=== PATIENT | female | born 1965 | race Caucasian/White ===

== ENCOUNTER 2019-06-10 15:03 | Inpatient (IN) ==
[2019-06-10] MEDS ORDERED: DUONEB (A & A) INH ONE (15:39)
--- NOTE | 2019-06-10 15:47 | PROVIDER DOCUMENTATION ---
HPI-General Adult - General Stated Complaint: SOB Time Seen by Provider: 06/10/19 15:26 Source: patient, family, EMS Allergies/Adverse Reactions: Patient Allergies Allergy/AdvReac Type Severity Reaction Status Date / Time Sulfa (Sulfonamide Allergy ITCHING Verified 05/21/12 23:14 Antibiotics) Home Medications: Home Medication List Medication Instructions Recorded Confirmed Last Taken Type Albuterol Sulfate Inhaler 2 puff INH [id number] 05/21/12 05/21/12 Unknown History [Ventolin Hfa] Aspirin 325 mg PO DAILY 05/21/12 05/21/12 Unknown History Azithromycin [Zithromax Tri-Jerry] 500 mg PO DIRECTED #1 tablet 05/21/12 Unknown Rx Budesonide/Formoterol Inhaler 2 puff INH RTBID 05/21/12 05/21/12 Unknown History [Symbicort 80/4.5 Microgm Inhaler] Fluticasone 50 Mcg Nasal [place] 2 spray JEYSON DAILY 05/21/12 05/21/12 Unknown History [Flonase] Insulin Aspart [Novolog] 100 unit SQ DIRECTED 05/21/12 05/21/12 Unknown History Insulin Glargine [Lantus] 0 unit SUBQ DIRECTED 05/21/12 05/21/12 Unknown History LISINOpril [Prinivil] 20 mg PO DAILY 05/21/12 05/21/12 Unknown History Levothyroxine [Synthroid] 200 microgm PO DAILY 05/21/12 05/21/12 Unknown History Lorazepam [Ativan] 1 mg PO Q6H PRN PRN 05/21/12 05/21/12 Unknown History Meloxicam [Mobic] 7.5 mg PO DAILY 05/21/12 05/21/12 Unknown History Methylprednisolone [Medrol Dosepak] 4 mg PO DIRECTED #1 package 05/21/12 Unknown Rx - History of Present Illness -Gen Adult Nature of Presenting Problems: Patient with a h/o copd brought to the ER by EMS. Patient has been having sob for days now. Has been using borrowed albuterol nebulizer at home. Patient got worse today. Per EMS fire department placed her on oxygen as her 02 sat was in the 70s. EMS gave breathing treament x2 enroute to ED. Patient denies cough, chest pain, N/V or diaphoresis Review of Systems - Adult - REVIEW OF SYSTEMS - ADULT Constitutional: reports: no symptoms reported Eyes: reports: no symptoms reported Ears, Nose, Mouth & Throat: reports: no symptoms reported Cardiovascular: reports: no symptoms reported Respiratory: reports: see HPI Gastrointestinal: reports: no symptoms reported Genitourinary: reports: no symptoms reported Musculoskeletal: reports: no symptoms reported Integumentary: reports: no symptoms reported Neurological: reports: no symptoms reported Psychiatric: reports: no symptoms reported Endocrine: reports: no symptoms reported Hematologic/Lymphatic: reports: no symptoms reported Allergic/Immunologic: reports: no symptoms reported All Other Systems: Reviewed and Negative Past History - Adult - PAST MEDICAL HISTORY-ADULT Review of Records: reports: Nursing Assessment Review, Medications Reviewed, Social history reviewed & non-contributory. Cardiovascular: reports: CHF, HTN Respiratory: reports: COPD - FAMILY HISTORY Family History: reviewed, not pertinent - SOCIAL HISTORY Smoking: cigarettes Substance Use: none/never Alcohol Use Frequency: never Living Situation: family Physical Exam-General - PHYSICAL EXAM-ADULT Initial Vital Signs Reviewed: Yes - CONSTITUTIONAL General Appearance: appears well, lethargic (slightly. on 02 nC 6liter now decreased to 4 liter) - EYES Eyes: PERRL/EOMI - HEAD, EARS, NOSE, MOUTH & THROAT HENMT: normocephalic/atraumatic, moist mucous membranes - NECK Neck: non-tender, full range of motion - RESPIRATORY Respiratory: chest non-tender, crackles - CARDIOVASCULAR Cardiovascular: regular rate, rhythm - GASTROINTESTINAL (ABDOMEN) Abdominal Exam: non tender - MUSCULOSKELETAL Back Exam: no CVA tenderness Extremity: non-tender, pedal edema (mild bilateral leg edema.) - SKIN Integumentary: normal color - NEUROLOGIC Neurologic: physician general practice II-XII nml as tested - PSYCHIATRIC Psych/Mental Status: oriented x 3 Progress - PLAN OF CARE/RESULTS Progress/Plan/Lab Results: Orders Category Date Time Status Saline Loc NOW Care 06/10/19 15:39 Ordered CHEST-2 VIEWS [RAD] Stat Exams 06/10/19 15:39 Ordered CBC WITH DIFF [HEME] Stat Lab 06/10/19 15:39 Uncollected CK PROFILE [SP CHEM] Stat Lab 06/10/19 15:39 Uncollected COMPREHENSIVE METABOLIC PANEL [CHEM] Stat Lab 06/10/19 15:39 Uncollected PRO B-NATRIURETIC PEPTIDE Stat Lab 06/10/19 15:40 Uncollected TROPONIN T HIGH SENSITIVITY Stat Lab 06/10/19 15:39 Uncollected Albuterol 2.5MG/Ipratrop 0.5MG [Duoneb (A & A)] Med 06/10/19 15:39 Once 3 ml INH NOW ONE Aerosol Treatments Routine Oth 06/10/19 15:41 Ordered Aerosol Treatments Stat Oth 06/10/19 15:41 Ordered Pulse Oximetry Stat Oth 06/10/19 15:39 Ordered Result Diagrams: 06/10/19 16:50 06/10/19 16:50 - REASSESSMENT Reassessment #1 Time Reassessed: 17:45 Status: unchanged (patient is having bradycardia. Repeat EKG reveals sinus bradycardia. Pulse has been decreasing to the 30s. Discussed case with Child Daycare Worker Dr Spencer. He wants atropin to be tried and dopamin can be considered if Atropin is innefective. He wants revies of patients med. Patient unable to state and did not come with med. Family member indicates that patient speech is been differnet today and that she is having word finding difficulty. Patient had earlier stated that she had taken nyquill. Inview of abnormal speech pattern and bradycardia, I will do a CT head. Will also obtain an ABG.) Reassessment #2 Time Reassessed: 18:42 Status: other (Has a pco2 of 59, will place patient on bipap) - XRAY 1 XRAY Study: Chest ( CHEST-2 VIEWS - 06/10/2019 INDICATION: sob COMPARISON: 05/21/2012 FINDINGS: There is cardiomegaly and pulmonary vascular congestion. There is diffuse bilateral interstitial pulmonary edema. No pneumothorax or large pleural effusion. IMPRESSION: Congestive heart failure. Electronically signed by Robert Ness 06/10/2019 4:12 PM 06/10/192 Interpreting Physician: Robert Ness MD Dictated Date/Time: 06/10/19 1611) - CONSULTS/PCP/HOSPITALIST Notification #1 *Consult/PCP/Hospitalist*: Dr Fuchs Time Discussed: 19:14 Consult Disposition: Admit (Accepts admission but want D- dimer ordered) Departure - Departure Date of Disposition Decision: 06/10/19 Time of Disposition Decision: 19:12 DIAGNOSIS: COPD exacerbation CHF exacerbation Qualifiers: Heart failure type: unspecified Qualified Code(s): I50.9 - Heart failure, unspecified Disposition: ADMITTED INPATIENT 09 Certified Medical Emergency: Emergent Condition: Fair Referrals and Follow-Ups: None,PCP [Primary Care Provider] - - Critical Care Note This patient required my direct & personal management of CC.: No Attestation - Physician/ BUFFY Attestation Patient care was provided by Advanced Practice Provider:: No The physician spent face to face time with patient:: Yes Advanced Practice Provider documentation review:: Supervising physician onsite a nd consulted in the evaluation and care of this patient. The physician did have a face to face encounter with the patient.
--- NOTE | 2019-06-10 16:14 | Diag Imaging Result Doc PS360 ---
CHEST-2 VIEWS - 06/10/2019 INDICATION: sob COMPARISON: 05/21/2012 FINDINGS: There is cardiomegaly and pulmonary vascular congestion. There is diffuse bilateral interstitial pulmonary edema. No pneumothorax or large pleural effusion. IMPRESSION: Congestive heart failure. Electronically signed by Robert Ness 06/10/2019 4:12 PM
[2019-06-10] MEDS ORDERED: LASIX IV ONE (16:37)
--- NOTE | 2019-06-10 16:47 | EKG Report ---
Test Performed on : 06/10/2019 3:08:18 PM Test Reason : ED. No order in [place] Blood Pressure : / mmHG Vent. Rate : 056 BPM Atrial Rate : 056 BPM P-R Int : 000 ms QRS Dur : 104 ms QT Int : 516 ms P-R-T Axes : 000 -15 104 degrees QTc Int : 497 ms Junctional rhythm. Nonspecific T wave abnormality Abnormal ECG When compared with ECG of 21-MAY-2012 22:19, Junctional rhythm. has replaced Sinus rhythm. Vent. rate has decreased BY 48 BPM Nonspecific T wave abnormality, worse in Inferior leads T wave inversion now evident in Lateral leads Unconfirmed Result
[2019-06-10 17:04] LABS: BASO# 0.03 X1000 (0.0-0.2); BASO% 0.3 % (0.0-0.8); EOS% 0.9 % (0.0-10.0); HEMATOCRIT 37.1 % (37.0-47.0); HEMOGLOBIN 12.2 g/dL (12.0-16.0); IMM GRAN# 0.04 X1000 (0.0-0.04); IMM GRAN% 0.4 % (0.0-0.5); LYMPH# 2.48 X1000 (1.2-3.4); LYMPH% 22.9 % (20.5-51.1); MCH 32.8 PG (27-31); MCHC 32.9 g/dL (33-37); MCV 99.7 FL (81-99); MONO# 0.75 X1000 (0.11-0.59); MONO% 6.9 % (1.7-9.3); MPV 9.6 FL (7.4-10.4); NEUT# 7.45 X1000 (1.4-6.5); NEUT% 68.6 % (42.2-75.2); PLT 203 X1000 (130-400); RBC 3.72 XMIL (4.2-5.4); RDW 14.9 % (11.5-14.5); WBC 10.85 X1000 (4.8-10.8)
[2019-06-10] MEDS ORDERED: ATROPINE IV ONE ×2 (17:18→17:46)
[2019-06-10 17:24] LABS: AGAP 10; ALB/GLOB RATIO 1.1; ALBUMIN 3.9 g/dL (3.5-5.0); ALKALINE PHOSPHATASE 66 U/L (32-104); BUN 13 mg/dL (8-22); CHLORIDE 94 mmol/L (98-107); COSMO 271; CREATININE 0.9 mg/dL (0.5-0.9); ESTIMATED GFR > 60; GLUCOSE 119 mg/dL (70-104); GOT 48 U/L (10-30); GPT 34 U/L (10-36); POTASSIUM 3.8 mmol/L (3.5-5.1); SODIUM 135 mmol/L (136-145); TCO2 31 mmol/L (25-35); TOTAL BILIRUBIN 0.19 mg/dL (0.20-1.00); TOTAL PROTEIN 7.3 g/dL (6.3-8.3)
[2019-06-10 17:29] LABS: CK PROFILE 1053 U/L (24-173)
[2019-06-10 17:46] LABS: CK INDEX 1.6 (0.0-2.5); CK-MB 16.44 ng/mL (0.0-5.0)
[2019-06-10 18:35] LABS: URINE SOURCE CLEAN CATCH
[2019-06-10 18:38] LABS: ALLEN TEST YES; BE 5.4 mmoll (-3.0-3.0); BLOOD TYPE ARTERIAL; METHB 0.8 % (0.0-1.5); O2(CT) 16.5 mL/dL (15.0-23.0); O2HB 93.3 % (95.0-99.0); PO2(98.6) 79 mmHg (60-100); SAMPLE BLOOD; SAO2 96.9 % (95.0-100.0); THB 12.5 g/dL (11.5-17.4); pH(98.6) 7.35 (7.35-7.45)
[2019-06-10 18:41] LABS: MODALITY CANNULA; PCO2(98.6) 59 mmHg (35-45)
--- NOTE | 2019-06-10 18:43 | Diag Imaging Result Doc PS360 ---
CT HEAD W/O CONTRAST - 06/10/2019 INDICATION: word finding difficulty COMPARISON: None FINDINGS: The ventricles and sulci are normal in size and contour. No intracranial mass or hemorrhage. The skull is intact. The sinuses mastoids and middle ears are clear. There are advanced calcifications of the carotid siphons indicating vascular disease. IMPRESSION: No acute disease. This exam was performed using automated exposure control, adjustment of mA or kV according to patient size, and/or use of iterative reconstruction technique Electronically signed by Robert Ness 06/10/2019 6:41 PM
[2019-06-10 18:56] LABS: BILIRUBIN URINE NEGATIVE (NEGATIVE); BLOOD URINE NEGATIVE (NEGATIVE); COLOR YELLOW; GLUCOSE URINE NEGATIVE (NEGATIVE); KETONE URINE NEGATIVE (NEGATIVE); LEUKOCYTES URINE NEGATIVE (NEGATIVE); NITRITE URINE NEGATIVE (NEGATIVE); PH URINE 6.5; PROTEIN URINE 50 mg/dL (NEGATIVE); SP GRAVITY URINE 1.016; TURBIDITY URINE CLEAR (CLEAR); UR EPITHELIAL CELLS <10 /HPF (<10); URINE BACTERIA 1+ /HPF; URINE RBC <10 /HPF (<10); URINE WBC <10 /HPF (<10); UROBILINOGEN URINE NORMAL (NORMAL)
[2019-06-10] MEDS: DUONEB (A & A) INH SCH (23:55)
[2019-06-10] MEDS ORDERED: ZOFRAN IV PRN (23:55)
--- NOTE | 2019-06-11 00:03 | HISTORY AND PHYSICAL ---
PRIMARY CARE PHYSICIAN: None. CHIEF COMPLAINT: Shortness of breath for 1 week. HISTORY OF PRESENTING ILLNESS: A 54-year-old female with a history of COPD, hypertension, diabetes mellitus type 2, and hypothyroidism, who presented to emergency department 1-week history of worsening shortness of breath. The patient states that she was having difficulty breathing and her symptoms were worsening. The patient was evaluated in the emergency department. She was found to be in some respiratory distress. She was put on BiPAP and she had improvement. During initial evaluation she was also found to be bradycardic. Her case was discussed with Cardiology who recommended she be given atropine and it seems that her heart rate had increased to around 50s. The patient will require admission for further management. At the time of my examination, patient denied any headache, fever, chills, chest pain, hemoptysis, melena, but complained of shortness of breath. PAST MEDICAL HISTORY: Includes hypertension, diabetes mellitus type 2, hypothyroidism, COPD. PAST SURGICAL HISTORY: Hysterectomy, thyroidectomy. ALLERGIES: No known drug allergies. CURRENT MEDICATIONS: Albuterol inhaler 2 puffs 4 times a day, aspirin 325 mg p.o. daily, azithromycin 500 mg as directed, insulin NovoLog 100 units subcu as directed, levothyroxine 200 mcg p.o. daily, lisinopril 20 mg p.o. daily, lorazepam 1 mg p.o. q.6 hours, meloxicam 7.5 mg p.o. daily. SOCIAL HISTORY: 40+ pack year history of smoking. Denies any history of alcohol or illicit drug use. FAMILY HISTORY: Positive for coronary disease mother. REVIEW OF SYSTEMS: Fourteen point review of systems is as in HPI. Other systems negative. PHYSICAL EXAMINATION: GENERAL: The patient is currently on BiPAP. VITAL SIGNS: Temperature 98 degrees, pulse 60, respirations 22, blood pressure 153/94. HEENT: Atraumatic, normocephalic. Extraocular movements intact. PERRLA. NECK: No masses. CHEST: Rhonchi. CARDIOVASCULAR: Regular rate and rhythm. ABDOMEN: Soft. Positive bowel sounds. EXTREMITIES: Trace edema. NEUROLOGIC: She is awake, alert, oriented x3. : No bladder distention. SKIN: Warm. LABORATORIES AND STUDIES: WBCs 10.85, hemoglobin 12.2, hematocrit 37.1, platelets 203,000. Blood gases shows pH of 7.35, pCO2 59, PO2 79. Sodium 135, potassium 3.8, chloride 94, CO2 is 31, BUN is 13, creatinine 0.9, glucose 110. Chest x-ray, congestive heart failure pattern. ASSESSMENT: This is a 54-year-old female with a history of hypertension, diabetes mellitus type 2, hypothyroidism and chronic obstructive pulmonary disease, who presented to emergency department with 1-week history of progressive shortness of breath. She was evaluated in the emergency department. She was found to be in distress. She was put on BiPAP and she had improvement. She was also found to be bradycardic and she was given atropine and due to her presenting symptoms she will require admission for further management. 1. Chronic obstructive pulmonary disease exacerbation. 2. Probable congestive heart failure. 3. Bradycardia. 4. Diabetes mellitus type 2. PLAN: 1. We will admit patient to PVC. 2. Continue the patient on BiPAP. 3. Continue with DuoNebs, IV Solu-Medrol, IV antibiotics. 4. We will continue gentle diuresis with Lasix and check echocardiogram and consult Cardiology. 5. Continue monitor patient on telemetry. 6. We will monitor blood glucose and put patient on sliding scale insulin regimen. 7. Put patient on DVT prophylaxis with SCDs and Lovenox. 8. We will continue to follow and reassess, make further recommendation based on patient's clinical course. cc: Arnoldo Fuchs MD
[2019-06-11] MEDS: DUONEB (A & A) INH SCH ×7 (00:47→23:23)
[2019-06-11] MEDS: LASIX IV SCH ×3 (01:18→21:45)
[2019-06-11] MEDS: LEVAQUIN 500 MG/D5W 500 MG/100 ML IVPB IV SCH ×2 (01:18→23:05)
[2019-06-11] MEDS: SOLU-MEDROL IV SCH ×3 (01:18→16:57)
[2019-06-11] MEDS ORDERED: SYNTHROID PO SCH (07:00)
[2019-06-11] MEDS: HUMULIN R SUBQ SCH ×4 (07:00→21:45)
[2019-06-11 07:55] LABS: BASO# 0.01 X1000 (0.0-0.2); BASO% 0.1 % (0.0-0.8); EOS# 0.02 X1000 (0.0-0.7); EOS% 0.2 % (0.0-10.0); HEMOGLOBIN 12.4 g/dL (12.0-16.0); IMM GRAN# 0.03 X1000 (0.0-0.04); IMM GRAN% 0.3 % (0.0-0.5); LYMPH# 1.21 X1000 (1.2-3.4); LYMPH% 10.8 % (20.5-51.1); MCH 32.5 PG (27-31); MCHC 32.6 g/dL (33-37); MCV 99.7 FL (81-99); MONO# 0.34 X1000 (0.11-0.59); MPV 9.4 FL (7.4-10.4); NEUT# 9.63 X1000 (1.4-6.5); NEUT% 85.6 % (42.2-75.2); PLT 195 X1000 (130-400); RBC 3.81 XMIL (4.2-5.4); RDW 14.9 % (11.5-14.5); WBC 11.24 X1000 (4.8-10.8)
[2019-06-11 08:25] LABS: LYMPHS 6 % (21-51); MONO 4 % (1-9); SEGS 90 % (42-75)
[2019-06-11 08:34] LABS: AGAP 13; BUN 16 mg/dL (8-22); CALCIUM 7.9 mg/dL (8.8-10.2); CHLORIDE 91 mmol/L (98-107); COSMO 272; CREATININE 0.9 mg/dL (0.5-0.9); ESTIMATED GFR > 60; GLUCOSE 142 mg/dL (70-104); POTASSIUM 3.8 mmol/L (3.5-5.1); SODIUM 134 mmol/L (136-145); TCO2 30 mmol/L (25-35)
--- NOTE | 2019-06-11 09:12 | EKG Report ---
Test Performed on : 06/10/2019 4:43:55 PM Test Reason : BRADYCARDIA Blood Pressure : / mmHG Vent. Rate : 046 BPM Atrial Rate : 046 BPM P-R Int : 190 ms QRS Dur : 092 ms QT Int : 568 ms P-R-T Axes : 043 -01 105 degrees QTc Int : 497 ms Sinus bradycardia. Cannot rule out Anterior infarct , age undetermined Abnormal ECG When compared with ECG of 10-JUN-2019 15:08, (Unconfirmed) Sinus rhythm. has replaced Junctional rhythm. Nonspecific T wave abnormality no longer evident in Inferior leads Unconfirmed Result
--- NOTE | 2019-06-11 10:28 | EKG Report ---
Test Performed on : 06/11/2019 10:16:56 AM Test Reason : dyspnea Blood Pressure : / mmHG Vent. Rate : 059 BPM Atrial Rate : 059 BPM P-R Int : 172 ms QRS Dur : 086 ms QT Int : 524 ms P-R-T Axes : 040 -08 081 degrees QTc Int : 518 ms Sinus bradycardia. with sinus arrhythmia. Cannot rule out Anterior infarct (cited on or before 10-JUN-2019) Abnormal ECG When compared with ECG of 10-JUN-2019 16:43, (Unconfirmed) No significant change was found Confirmed by Lita Lee MD ([id number]) on 06/11/2019 1:06:30 PM
[2019-06-11] MEDS: LOVENOX SUBQ SCH (10:44)
[2019-06-11] MEDS: ASPIRIN PO SCH (10:44)
--- NOTE | 2019-06-11 11:51 | ED EKG INTERP ---
This chart was entered by Micheline Andersen Scribe, acting as scribe for Cam Das MD. EKG Interpretation - EKG Time of EKG reading by physician:: 10:34 EKG Read and Signed by:: Cam Das EKG Interpretation (*Must complete 3 of following elements*): Normal (borderline) Rate: 47 Rhythm: sinus bradycardia [place]: normal QRS: LVH NC Interval: normal ST Wave: normal Attestation - Physician/ BUFFY Attestation Patient care was provided by Advanced Practice Provider:: No The physician spent face to face time with patient:: Yes Advanced Practice Provider documentation review:: Supervising physician onsite and consulted in the evaluation and care of this patient. The physician did have a face to face encounter with the patient. This chart was documented by the indicated scribe, (Micheline Andersen Scribe) and accurately reflects the services I performed and decisions made by me, Cam Das MD, as attested by the provider's signature.
[2019-06-11 13:33] LABS: CHOLESTEROL 239 mg/dL (0-200); HDL 65 mg/dL (45-65); LDL 157 mg/dL; TRIGLYCERIDES 86 mg/dL (35-135); VLDL 17 mg/dL
[2019-06-11 13:35] LABS: HEMOGLOBIN A1C 8.1 % (4.8-6.0)
--- NOTE | 2019-06-11 16:18 | PROGRESS NOTE ---
DATE: 06/11/2019 SUBJECTIVE: The patient reports breathing much better in comparing with yesterday. Denies any fever or chills. No chest pressure or chest pain. OBJECTIVE: Vital Signs: Temperature 97.1 degrees, heart rate 66, respiratory rate 18, blood pressure 153/100, O2 saturation 95% 3 L nasal cannula. General: This is a chronically ill- looking, 54-year-old female lying in bed, in no acute distress. Cardiovascular: S1, S2 heard. No murmurs, gallops, or rubs. Regular rate and rhythm. Respiratory: Rhonchi noted over both pulmonary joe. The patient is not using any accessory muscles or having work of breathing. Abdomen: Soft. Nontender to palpation. Bowel sounds present. No organomegaly. Extremities: No clubbing or cyanosis. Mild edema in both lower extremities. Neurological: Patient is alert and oriented x3. Moves 4 extremities. LABORATORY DATA: White cell count 11.24, hemoglobin is 12.4, hematocrit 38.0, platelets 195,000. ESR 44. BMP reveals glucose of 248 calcium 7.9, sodium 134. ASSESSMENT AND PLAN: 1. Acute respiratory failure secondary to chronic obstructive pulmonary disease exacerbation. Patient is on DuoNeb q.4 h. As schedule plus IV steroids and IV antibiotics. We will continue with the same management. 2. Possible congestive heart failure. The patient's chest x-ray showed congestive heart failure and her labs showed proBNP elevated at 1000. Cardiology has been consulted. We will do echocardiogram. We will continue with Lasix 40 mg IV q.12 h. We will continue with the same management. 3. Bradycardia. Patient evaluated by Cardiology. At this point, her heart rate is in the range of 60s and 70s. We will continue to monitor. 4. Diabetes mellitus, type 2. We will check hemoglobin A1c. We will continue with sliding scale insulin. Accu-Chek before meals and also at bedtime. cc: Darren Mejia MD
--- NOTE | 2019-06-11 21:16 | CARDIOLOGY CONSULTATION ---
DATE: 06/11/2019 REQUESTING PHYSICIAN: Hospitalist Service. REASON FOR CONSULTATION: Shortness of breath, weakness. HISTORY: Ms. Carlson is a 54-year-old, female, who presented to the emergency room at about 3 p.m. yesterday, with increasing dyspnea and wheezing. She had not noted relief by using her beta-2 agonist inhaler albuterol. Upon presentation, they did a chest x-ray that shows congestive heart failure and electrocardiogram shows sinus bradycardia. There was a lot of artifact there. The rate was 56 beats per minute. Initial blood work showed a proBNP level of 1090 pcg/mL. The upper normal for her age is 192. Her BUN and creatinine were normal. Her blood gases showed a pCO2 of 59, pH of 7.35, PO2 of 79. The patient's electrolytes, except for sodium of 135, were otherwise normal. Of note, her TSH level was reported at 89.82 mIU/mL, which is about 20 times the normal value. Her LDL cholesterol 157, total cholesterol 239. The patient has been given oxygen and is feeling a little better. PAST HISTORY: Significant for hypothyroidism. She has hypertension, diabetes mellitus type 2, and COPD. SURGICAL HISTORY: She had previous complete thyroidectomy. She says that she had a total of 4 operations. She had a hysterectomy. SOCIAL HISTORY: She is single, unemployed, and lives with her daughter. She has been a heavy smoker for many years. Not a drinker. FAMILY HISTORY: Mother had coronary heart disease. ALLERGIES: Sulfa drugs. HOME MEDICATIONS: She really does not see any doctor on a regular basis. She has been taking the following medications as best as she can, including insulin, levothyroxine, lisinopril, meloxicam, aspirin. REVIEW OF SYSTEMS: She is really chronically short of breath. She is morbidly obese with a body mass index of 42.9. She has difficulty doing physical activities, gets short of breath with minimal effort. No chest pains. No previous, heart disease. No other positives. PHYSICAL EXAMINATION: Blood pressure 159/89, temperature 97.1 degrees, respirations 20, pulse is 56. She is awake, alert. She has the facial appearance of profound hypothyroidism.HEENT: No jugular venous distention. Chest: Diminished breath sounds bilaterally. Heart: Sounds are regular, rhythmic, slow, without gallop or rub. Abdomen: Nontender. Extremities: No obvious edema. Neurologic: Nonfocal. Moves 4 extremities. IMPRESSION: 1. Patient with increasing dyspnea with respiratory failure, hypercarbic. 2. Abnormal chest x-ray suggesting congestive heart failure. ProBNP level is elevated. 3. Severe profound hypothyroidism. 4. The patient may have an inflammatory process. 5. Medical noncompliance. 6. History of hypertension. 7. History of diabetes mellitus. RECOMMENDATIONS: At this time, we will treat her with gentle diuresis. Her thyroid disorder needs to be treated aggressively. We will review the echocardiogram that has been requested and we will determine whether or not further cardiac testing is required. At this time, I believe it will probably suffice to put her on a sound regimen of drugs to deal with her hypothyroidism and her diabetes mellitus, as well as hypertension and COPD, and she will probably be all right. She may need to resort to the social staff worker to help her filing for disability and to get her Medicaid coverage. The patient unfortunately has no source of income to be able to afford medications at this time. We will follow her as needed. cc: Oumar Ramirez MD
--- NOTE | 2019-06-11 22:15 | Extremity Venous Study ---
PROCEDURE NAME: Venous U/S Bilateral Legs - 06/11/2019 CARPET INSTALLER: Kira Tory RVT REQUESTING PROVIDER: EMELYN Burton INDICATION: Dyspnea, with a D-dimer of 1.04. FINDINGS: The deep and superficial veins of the bilateral lower extremities were visualized along their course. Vessels are compressible with forward flow and no evidence of intraluminal thrombus. SUMMARY: No deep or superficial venous thrombosis seen in the bilateral lower extremities. cc: MD Nela Thornton PA
--- NOTE | 2019-06-11 23:49 | ECHO REPORT ---
ORDER DATE: 06/11/2019 MEASUREMENTS: Septal thickness 1.3. Left ventricular internal diameter in diastole 5.4. Posterior wall thickness 1.3. Left ventricular internal diameter in systole 3.8. Aortic root 3.6. Left atrium 4.6. SUMMARY: 1. Technically difficult study due to limited acoustic window quality. Intravenous echo contrast agent Optison was utilized to enhance endocardial definition. 2. Aortic valve was without evidence of structural abnormality and appears to open adequately on 2-dimensional images. Peak gradient across the aortic valve is less than 10 mmHg. Mitral, tricuspid and pulmonic valves are without evidence of structural abnormality with trace mitral regurgitation. Aortic root is normal in size. 3. Normal left ventricular chamber size with mild concentric left ventricular hypertrophy is demonstrated. Estimated left ventricular ejection fraction appears to be at least 55%. No regional wall motion abnormality can be appreciated. Left atrium is mildly enlarged. Right atrium and right ventricle are normal in size with grossly preserved right ventricular systolic function. 4. Tiny posterior pericardial effusion. 5. Appearance of inferior vena cava suggests normal central venous pressure. CONCLUSIONS: 1. Technically difficult study. 2. No significant valvular abnormality evident. 3. Mild concentric left ventricular hypertrophy with estimated left ventricular ejection fraction at least 55%. 4. Mild left atrial enlargement. 5. Tiny posterior pericardial effusion. cc: MD Darren Azul MD
[2019-06-12] MEDS: LASIX IV SCH ×2 (00:14→12:20)
[2019-06-12] MEDS: DUONEB (A & A) INH SCH ×6 (03:45→22:31)
[2019-06-12 05:51] LABS: ALLEN TEST YES; BE 6.7 mmoll (-3.0-3.0); BLOOD TYPE ARTERIAL; METHB 0.6 % (0.0-1.5); O2(CT) 16.5 mL/dL (15.0-23.0); O2HB 91.5 % (95.0-99.0); PCO2(98.6) 50 mmHg (35-45); PO2(98.6) 60 mmHg (60-100); SAMPLE BLOOD; SAO2 93.6 % (95.0-100.0); THB 12.8 g/dL (11.5-17.4); pH(98.6) 7.42 (7.35-7.45)
[2019-06-12 05:56] LABS: MODALITY BI PAP
[2019-06-12] MEDS: SYNTHROID PO SCH ×3 (05:58→05:59)
--- NOTE | 2019-06-12 07:17 | PULMONOLOGY CONSULTATION ---
DATE: 06/11/2019 REQUESTING PROVIDER: Nela DUNAWAY. REASON FOR CONSULTATION: Dyspnea, COPD. HISTORY OF PRESENT ILLNESS: This is a 54-year-old female with a medical history of COPD with ongoing tobacco use, morbid obesity, obstructive sleep apnea, congestive heart failure, hypertension, diabetes mellitus type 2 and hypothyroidism. She presented to the ER yesterday afternoon with worsening shortness of breath for several days. Initial workup in the ER revealed COPD exacerbation, probable congestive heart failure and bradycardia. The patient currently is sitting at the edge of the bed with moderate respiratory distress noted. She just walked to the bathroom and she just came back from the bathroom. She reports severe shortness of breath with less than 3 states in the last couple of days. She also has abdominal tightness with tenderness at times. She reports no fever, chill, cough, wheezing, chest pain, palpitation, nausea, vomiting, bowel habit change, urination discomfort, pedal edema or orthopnea. She has normal appetite and she has no idea about her weight change. PAST MEDICAL HISTORY: 1. COPD with ongoing tobacco use on rescue inhaler only at home, used about twice a day recently. 2. Morbid obesity. Current BMI 42.93. 3. Obstructive sleep apnea, on CPAP therapy at home but did not use CPAP nightly. 4. Congestive heart failure. 5. Hypertension. 6. Diabetes mellitus type 2. 7. Hypothyroidism. PAST SURGICAL HISTORY: Hysterectomy, thyroidectomy. ALLERGIES: Sulfa. SOCIAL HISTORY: The patient smokes less than half a pack per day recently. She used to smoke up to 1 pack per day. She has no history of alcohol or illicit drug use. FAMILY HISTORY: Positive for coronary artery disease. REVIEW OF SYSTEMS: A 10-point review of systems was conducted and the pertinent is listed within the HPI, otherwise noncontributory. PHYSICAL EXAMINATION: Vital Signs: Temperature 98.2 degrees, blood pressure 157/97, pulse 70, respiratory rate 22, oxygen saturation 95% on nasal cannula at 3 L. General: Morbidly obese, sitting at the edge of the bed with moderate respiratory distress. HEENT: Atraumatic, normocephalic. Trachea midline. Mucosa pink and moist. Respiratory: Tachypneic. Increased work of breathing, but no accessory muscle use. Auscultation revealed mild expiratory wheezing bilaterally anteriorly but not posteriorly. Cardiovascular: Regular rate and rhythm with S1, S2 appreciated. Gastrointestinal: Soft, protuberant, some generalized tenderness. Normoactive bowel sounds in all 4 quadrants. Extremities: Bilateral lower extremities chest edema. No cyanosis. No clubbing. Dorsalis pedis 2+ bilaterally. Neurologic: Alert and oriented x3. Speech fluent. Follows commands. LAB DATA: White blood cell 11.24, hemoglobin 12.4, hematocrit 38.0, platelet 195,000. Sodium 134, potassium 3.8, chloride 91, carbon dioxide 30, BUN 16, creatinine 0.9, glucose 142. Hemoglobin A1c 8.1. IMAGING DATA: No imaging today. Chest x-ray yesterday revealed congestive heart failure with cardiomegaly, pulmonary vascular congestion and diffuse bilateral interstitial pulmonary edema. ASSESSMENT: This is a 54-year-old female with a medical history of COPD with ongoing tobacco use, morbid obesity, obstructive sleep apnea, congestive heart failure, hypertension, diabetes mellitus type 2, and hypothyroidism. She has been admitted to the medical floor with possible congestive heart failure, chronic obstructive pulmonary disease exacerbation, bradycardia, diabetes mellitus type 2 and hypothyroidism. 1. Acute hypoxic hypercapnic respiratory failure secondary to COPD exacerbation and pulmonary edema. 2. Possible congestive heart failure exacerbation with cardiomegaly, pulmonary vascular congestion, diffuse bilateral interstitial pulmonary edema and proBNP elevation. 3. Diabetes mellitus type 2. Hemoglobin A1c 8.14. 4. Hypothyroidism. TSH 89.82. 5. Morbid obesity with SANJAY. On home CPAP therapy, but not use nightly. 6. Ongoing tobacco use. PLAN: 1. Continue supplemental oxygen. BiPAP at bedtime and as needed. 2. Continue antibiotic Levaquin and diuresis. Continue bronchodilators. 3. Follow up with ABG, BMP. 4. Daily tobacco cessation education. 5. Weight loss recommended. 6. Further recommendations pending hospital course. Thank you for the courtesy of this consult. Dr. Cast did the examination, evaluation and management orders. HOWARD did the dictation only for Dr. Cast, according to his direction. Dictated by HOWARD Aviles for Anu Cast MD cc: HOWARD Aviles MD [facility]
[2019-06-12] MEDS: HUMULIN R SUBQ SCH ×4 (07:24→20:31)
--- NOTE | 2019-06-12 07:24 | Diag Imaging Result Doc PS360 ---
EXAM: CT THORAX W/O CONTRAST INDICATION: copd, chf TECHNIQUE: This exam was performed using automated exposure control, adjustment of mA or kV according to patient size, and/or use of iterative reconstruction technique. COMPARISON: None. FINDINGS: There is subsegmental platelike atelectasis at the lower lung zones bilaterally. Although less likely, superimposed infiltrate in the right middle lobe possible. There is no pleural fluid collection and no pneumothorax. There is cardiomegaly and there is trace pericardial fluid. There is coronary artery atherosclerotic calcification. There is no evidence of significant mediastinal or hilar lymphadenopathy. There is an incidental 1.7 cm coarsely calcified left thyroid lobe nodule. Limited views of the upper abdomen reveals cholelithiasis. There is bilateral low dense adrenal gland thickening suggesting hyperplasia or underlying adenomas most likely. Limited views of the upper abdomen are essentially unremarkable, otherwise. There is no evidence of acute osseous abnormality. IMPRESSION: 1.Subsegmental atelectasis at the lower lung zones bilaterally. Although less likely, superimposed infiltrate in the right middle lobe is possible. 2.Cardiomegaly and trace pericardial effusion. 3.Other incidental/nonacute findings detailed above. Electronically signed by Leonid Ghosh 06/12/2019 7:22 AM
--- NOTE | 2019-06-12 07:24 | Diag Imaging Result Doc PS360 ---
EXAM: CHEST-1 VIEW 06/12/2019 HISTORY: SOB TECHNIQUE: AP portable at 0555 COMMENT: There is cardiomegaly. There is some ill-defined opacity in the right base which was also present on 06/10/2019. Otherwise are has been no significant change considering differences in technique. IMPRESSION: Minimal atelectasis versus pneumonia right lower lobe. Cardiomegaly. Electronically signed by Lebron Aquino 06/12/2019 7:21 AM
[2019-06-12] MEDS: LOVENOX SUBQ SCH (08:02)
[2019-06-12] MEDS: ASPIRIN PO SCH (08:02)
--- NOTE | 2019-06-12 08:07 | EKG Report ---
Test Performed on : 06/12/2019 07:14:36 AM Test Reason : dyspnea Blood Pressure : / mmHG Vent. Rate : 056 BPM Atrial Rate : 056 BPM P-R Int : 184 ms QRS Dur : 086 ms QT Int : 512 ms P-R-T Axes : 056 009 066 degrees QTc Int : 494 ms Sinus bradycardia. with sinus arrhythmia. Nonspecific T wave abnormality Prolonged QT Abnormal ECG When compared with ECG of 11-JUN-2019 10:16, No significant change was found Confirmed by Lita Lee MD ([id number]) on 06/12/2019 8:32:46 AM
[2019-06-12 08:57] LABS: CALCIUM 7.9 mg/dL (8.8-10.2); MAGNESIUM 1.8 mg/dL (1.5-2.7); POTASSIUM 3.6 mmol/L (3.5-5.1)
--- NOTE | 2019-06-12 12:49 | PROGRESS NOTE ---
DATE: 06/12/2019 SUBJECTIVE: The patient reports feeling much better today. Denies any fever or chills. OBJECTIVE: Vital Signs: Temperature 98.2 degrees, heart rate 59, respiratory rate 16, blood pressure 175/88. O2 saturation 94% on 4 L. General: This is a chronically ill-looking, 54- year-old, disheveled female lying in bed, in no acute distress. Cardiovascular: S1, S2 heard. No murmurs, gallops, or rubs. Regular rate and rhythm. Respiratory: Rhonchi is noted all over both pulmonary joe. Basically, the same compared with yesterday. Patient is not using any accessory muscles or having work of breathing. Abdomen: Soft, nontender to palpation. Bowel sounds present. No organomegaly. Extremities: No clubbing or cyanosis but mild edema in both lower extremities. Neurological: Patient is alert and oriented x3. Moves 4 extremities. LABORATORY DATA: There are no labs from today yet. ABG shows pH 7.42 with pCO2 50, PO2 68. With creatinine 1.0. ASSESSMENT AND PLAN: 1. Acute respiratory failure secondary to chronic obstructive pulmonary disease exacerbation. Patient is on DuoNeb every 4 hours as scheduled and intravenous steroid and intravenous Levaquin. Clinically patient is doing better. We will continue with the same management. The CT of the chest that we had done yesterday showed right middle lobe pneumonia with subsegmental atelectasis and cardiomegaly and trace pleural effusion. At this point, we will continue with the same management. 2. Possible congestive heart failure. She continues to be on Lasix 40 mg IV q.12 hours. Echocardiogram is still pending. Cardiology will follow her as needed. 3. Bradycardia resolved. 4. Diabetes mellitus type 2. We will continue with sliding scale insulin. Accu-Chek before meals and also at bedtime. 5. Disposition. We will continue to monitor this patient closely. cc: Darren Mejia MD
--- NOTE | 2019-06-12 18:45 | PROVIDER PROGRESS NOTE ---
Progress Note Dr. Cast Progress Note/Pulmonary and or critical care Subjective: Patient is sitting in bed on NC 4L with no acute distress noted. She states she is feeling better. She used BiPAP over night with a good sleep. She still has SOB with about 3 steps of walking. Her abdominal tightness/soreness is resolved. She has occasional nonproductive cough. Objective: Vital Signs: T 98.2, MI 59, RR 16, BP 175/64 and SaO2 96% on NC 4L. Physical Examination: General: Morbidly obese. Sitting in bed with no acute distress noted. HEENT: Normocephalic. Atraumatic. Trachea midline. Mucosa pink and moist. Poor dentition. Chest: Even and unlabored. No increased work of breathing or accessory muscle use. Symmetrical excursion. Auscultation reveals bilateral rhonchi and diminished breathing sounds bibasilarly. CVS: Regular rate and rhythm with S1 and S2 appreciated. Abdomen: Soft. Nontender. Protuberant. Normoactive bowel sounds in all 4 quadrants. Extremities: No pedal edema. No cyanosis. No clubbing. Neuro: A/O x3. Speech fluent. Following commands. Labs and Radiology: Laboratory Results 06/11/19 06/12/19 06/12/19 19:45 05:40 07:32 Specimen Type ARTERIAL Sample Site R RADIAL pH 7.42 pCO2 50 H pO2 60 HCO3 30.0 H Base Excess 6.7 H Oxyhemoglobin 91.5 L ABG O2 Sat (Calculated) 16.5 ABG O2 Saturation 93.6 L ABG Carboxyhemoglobin 1.60 ABG Methemoglobin 0.6 Waldemar Test YES A-a O2 Difference 77.0 Total Hemoglobin 12.8 Lactate 2.10 Blood Gas Modality BI PAP FiO2 % 28.0 Inspiratory BiPAP 16.0 Expiratory BiPAP 5.0 Sodium 135 L Potassium 3.6 Chloride 92 L Carbon Dioxide 30 Anion Gap 13 BUN 19 Creatinine 1.0 H Estimated GFR/1.73 m2 58 BUN/Creatinine Ratio 19 Glucose 236 H D POC Glucose 231 H Calculated Osmolality 280 Calcium 7.9 L Magnesium 1.8 06/12/19 06/12/19 10:15 15:36 Specimen Type Sample Site pH pCO2 pO2 HCO3 Base Excess Oxyhemoglobin ABG O2 Sat (Calculated) ABG O2 Saturation ABG Carboxyhemoglobin ABG Methemoglobin Waldemar Test A-a O2 Difference Total Hemoglobin Lactate Blood Gas Modality FiO2 % Inspiratory BiPAP Expiratory BiPAP Sodium Potassium Chloride Carbon Dioxide Anion Gap BUN Creatinine Estimated GFR/1.73 m2 BUN/Creatinine Ratio Glucose POC Glucose 262 H 194 H Calculated Osmolality Calcium Magnesium Assessment: Acute respiratory failure, hypoxemic and hypercapnic. Possible RML pneumonia with atelectasis BLL. CT thorax w/o contrast on 06/12/19 revealed subsegmental atelectasis bilateral lower lung zones with possible superimposed infiltrate in the RML; cardiomegaly with trace pericardial effusion. Congestive heart failure with elevated proBNP. COPD with mild acute exacerbation. Ongoing tobacco use. Morbid obesity with SANJAY. Hypothyroidism. TSH 89.82 on 06/10/19. Uncontrolled diabetes mellitus type II. HA1c 8.1 on 06/11/19. Plan: Continue current treatment and supportive care per admitting and other teams on the case. Supplemental oxygen as needed. BiPAP qhs and as needed. Antibiotic (Levaquin). Diuretic. Bronchodilators. Daily smoking cessation education. Recommend weight loss. Continue DVT prophylaxis. Start incentive spirometer. Encourage deep breathing and coughing routinely. Stress the importance of CPAP therapy at home which will help the control of her blood pressure and diabetes. Patient states I did not use it every night before, but I will after I go back home.
[2019-06-13] MEDS: LASIX IV SCH ×3 (00:37→22:57)
[2019-06-13] MEDS: LEVAQUIN 500 MG/D5W 500 MG/100 ML IVPB IV SCH ×2 (00:37→22:57)
[2019-06-13] MEDS: DUONEB (A & A) INH SCH ×6 (03:15→23:43)
[2019-06-13 05:44] LABS: ALLEN TEST YES; BE 10.5 mmoll (-3.0-3.0); BLOOD TYPE ARTERIAL; HCO3-(ACT) 33.1 mmoll (20.0-26.0); METHB 0.7 % (0.0-1.5); O2(CT) 17.1 mL/dL (15.0-23.0); O2HB 95.7 % (95.0-99.0); PCO2(98.6) 49 mmHg (35-45); PO2(98.6) 79 mmHg (60-100); SAMPLE BLOOD; SAO2 97.3 % (95.0-100.0); THB 12.7 g/dL (11.5-17.4); pH(98.6) 7.47 (7.35-7.45)
[2019-06-13 05:49] LABS: MODALITY CANNULA
[2019-06-13] MEDS: HUMULIN R SUBQ SCH ×4 (06:01→23:01)
[2019-06-13] MEDS: SYNTHROID PO SCH ×2 (06:01→07:37)
--- NOTE | 2019-06-13 06:27 | Diag Imaging Result Doc PS360 ---
CHEST-1 VIEW - 06/13/2019 INDICATION: SOB COMPARISON: 06/12/2019 FINDINGS: Stable cardiomegaly and pulmonary vascular congestion. Stable tiny focal infiltrate at the right lung base. No diffuse edema. No large pleural effusion. IMPRESSION: No change from prior. Electronically signed by Robert Ness 06/13/2019 6:24 AM
[2019-06-13 08:29] LABS: AGAP 11; ALBUMIN 3.9 g/dL (3.5-5.0); BUN 20 mg/dL (8-22); CALCIUM 7.7 mg/dL (8.8-10.2); CHLORIDE 94 mmol/L (98-107); COSMO 282; CREATININE 0.9 mg/dL (0.5-0.9); ESTIMATED GFR > 60; GLUCOSE 204 mg/dL (70-104); MAGNESIUM 1.8 mg/dL (1.5-2.7); PHOSPHORUS 1.8 mg/dL (2.7-4.5); POTASSIUM 3.3 mmol/L (3.5-5.1); SODIUM 137 mmol/L (136-145); TCO2 32 mmol/L (25-35)
[2019-06-13] MEDS: LOVENOX SUBQ SCH (09:09)
[2019-06-13] MEDS: ASPIRIN PO SCH (09:09)
--- NOTE | 2019-06-13 10:20 | PROVIDER PROGRESS NOTE ---
Progress Note Pulmonary: Will see prn. Pls reconsult if needed.
[2019-06-13] MEDS ORDERED: SODIUM PHOSPHATE 35 MMOL in NS 250 ML IV ONE (11:00)
[2019-06-13] MEDS ORDERED: KLOR-CON PO ONE (11:38)
--- NOTE | 2019-06-13 13:14 | PROVIDER PROGRESS NOTE ---
Progress Note We are signing off of the patient's case. Please re-consult if needed.
--- NOTE | 2019-06-13 15:02 | PROGRESS NOTE ---
DATE: 06/13/2019 SUBJECTIVE: Patient reports feeling much better. Denies any fever or chills. OBJECTIVE: Vital Signs: Temperature 97.4 degrees, heart rate 67, respiratory rate 20, blood pressure 159/89, O2 saturation 95% on room air. General Examination: This is a chronically ill- looking, 54-year-old, disheveled, female lying in bed, in no acute distress. Cardiovascular Examination: S1 and S2 heard. No murmurs, gallops, or rubs. Regular rate and rhythm. Respiratory Examination: Rhonchi is noted all over both pulmonary joe. Definitely much better in comparing with admission. The patient is not using any accessory muscles or having work of breathing. Abdomen Soft, nontender to palpation. Bowel sounds present. No organomegaly. Extremities: No clubbing or cyanosis but mild edema in both lower extremities. Neurological Examination: The patient is alert and oriented x3. Moves 4 extremities. Laboratory Data: There is an ABG that shows pH 7.47, with pCO2 of 49, PO2 of 79. BMP that indicates potassium 3.3, glucose 204. ASSESSMENT AND PLAN: 1. Acute respiratory failure secondary to chronic obstructive pulmonary disease exacerbation. We will continue with DuoNeb every 4 hours as scheduled, intravenous steroids, and intravenous Levaquin. Clinically, this patient continues to improve. Requiring 2 L of oxygen by nasal cannula only. At this point, we will continue with the same management. 2. Possible congestive heart failure. Patient has been on Lasix. We did not see any signs of systolic heart failure because the ejection fraction has been 55% and I do not see signs of diastolic dysfunction. At this point, we will continue with the same management. 3. Bradycardia. That condition is completely resolved. 4. Diabetes mellitus type 2. We will continue with sliding scale insulin, and Accu-Chek before meals and also at bedtime. 5. Disposition. We will continue to monitor this patient closely. I think tomorrow she should be able to go home. cc: Darren Mejia MD
[2019-06-14] MEDS: DUONEB (A & A) INH SCH ×3 (03:48→11:11)
[2019-06-14] MEDS: HUMULIN R SUBQ SCH ×2 (06:12→11:15)
[2019-06-14] MEDS: SYNTHROID PO SCH (06:31)
[2019-06-14 07:40] LABS: ALLEN TEST YES; BLOOD TYPE ARTERIAL; HCO3-(ACT) 33.5 mmoll (20.0-26.0); PO2(98.6) 87 mmHg (60-100); SAMPLE BLOOD
[2019-06-14 07:44] LABS: PCO2(98.6) 62 mmHg (35-45)
[2019-06-14 07:45] LABS: MODALITY BI PAP
--- NOTE | 2019-06-14 07:59 | Diag Imaging Result Doc PS360 ---
EXAM: CHEST-1 VIEW INDICATION: SOB TECHNIQUE: One view COMPARISON: 06/13/2019 FINDINGS: Mild pulmonary venous congestion and tiny focal infiltrate at the right lung base is approximately stable. No new consolidation is identified. Cardiac silhouette is stable. IMPRESSION: Essentially stable chest. Electronically signed by Leonid Ghosh 06/14/2019 7:56 AM
[2019-06-14 08:54] LABS: AGAP 12; ALBUMIN 3.9 g/dL (3.5-5.0); BUN 13 mg/dL (8-22); CALCIUM 7.9 mg/dL (8.8-10.2); CHLORIDE 94 mmol/L (98-107); COSMO 287; CREATININE 0.8 mg/dL (0.5-0.9); ESTIMATED GFR > 60; GLUCOSE 163 mg/dL (70-104); MAGNESIUM 1.8 mg/dL (1.5-2.7); PHOSPHORUS 2.3 mg/dL (2.7-4.5); POTASSIUM 3.6 mmol/L (3.5-5.1); SODIUM 142 mmol/L (136-145); TCO2 36 mmol/L (25-35)
[2019-06-14 09:50] VITALS: BP 143/70
[2019-06-14] MEDS: ASPIRIN PO SCH ×2 (09:53→10:34)
[2019-06-14] MEDS ORDERED: SODIUM PHOSPHATE 35 MMOL in NS 250 ML IV ONE (09:53)
[2019-06-14] MEDS: LOVENOX SUBQ SCH (09:53)
[2019-06-14] MEDS: LASIX IV SCH (11:15)
--- NOTE | 2019-06-14 21:26 | DISCHARGE SUMMARY ---
ADMISSION DATE: 06/10/2019 DISCHARGE DATE: 06/14/2019 PRIMARY CARE PHYSICIAN: Listed as none. CONSULTATIONS: With pulmonology, cardiology. ADMISSION DIAGNOSES: 1. Chronic chronic obstructive pulmonary disease exacerbation. 2. Probable congestive heart failure. 3. Bradycardia. 4. Diabetes type 2. DISCHARGE DIAGNOSES: 1. Acute respiratory failure secondary to chronic obstructive pulmonary disease exacerbation improved. 2. Possible congestive heart failure with no signs of systolic or diastolic failure with an ejection fraction of 55%. 3. Bradycardia, resolved. 4. Diabetes type 2. SUMMARY OF FINDINGS: This is a 54-year-old female who presented to the emergency room with a 1-week history of shortness of breath, having difficulty breathing, was found to be in some respiratory distress, was put on BiPAP and had improvement. She was found to be bradycardic. She was given atropine. We consulted Cardiology, did an echocardiogram on 06/11/2019 that showed an ejection fraction of 55%. A bilateral lower extremity venous Doppler was obtained and noted no deep or superficial venous thrombosis in both bilateral lower extremities. Chest CT was obtained on 06/11/2019 after seen by pulmonology, subsegmental atelectasis at the lower lung zones bilaterally, although less likely a superimposed infiltrate in the right middle lobe was possible, she had cardiomegaly and trace pericardial effusion. She continued IV antibiotics, IV steroids that were weaned and tapered, DuoNeb q.4 hours, O2 by nasal cannula. She has improved. She was also given some IV diuretics. Her bradycardia completely resolved and is now felt that she can safely be discharged home. DISCHARGE MEDICATIONS: Will include DuoNeb q.4 hours p.r.n., aspirin 325 mg p.o. daily, Ventolin inhaler 2 puff inhalation 4 times a day, aspirin 325 mg p.o. daily, Flonase 2 sprays nasally daily, NovoLog 20 units subcu t.i.d., Lantus 35 units subcutaneous b.i.d., Levaquin 750 mg p.o. daily #7 with no refills, Synthroid 50 mcg p.o. daily and 200 mcg p.o. daily, lisinopril 20 mg p.o. daily. FOLLOWUP: She will need to follow up with Pulmonology and Cardiology and call their office to set up an appointment in the next 2 to 3 weeks. All discharge instructions were reviewed with the patient and she verbalized understanding. TIME SPENT: 35 minutes. Dictated by HOWARD Eubanks for Darren Mejia MD Addendum: Patient seen and examined by myself. Agree with HOWARD note. It reflects my assessment and plan. Patient is being discharged in stable condition. Will be seen by Cardiology and Pulmonology. She is to call office to schedule an appointment. cc: HOWARD Eubanks MD [facility]
== END 2019-06-14 15:38 | disposition home or self-care (01) | DRG 190 ==
LOC: ED 15:03 → EDIPHOLD 23:11 → SUATTDRO 23:11 → EDIPHOLD 06-11 12:46 → 3N 06-11 15:26 → EDIPHOLD 06-11 15:33 → 3N 06-11 18:27
PROVIDERS: ATTEND Internal Medicine

== ENCOUNTER 2019-07-11 20:18 | Inpatient (IN) ==
[2019-07-11] MEDS ORDERED: DUONEB (A & A) INH ONE (20:54)
--- NOTE | 2019-07-11 21:14 | Diag Imaging Result Doc PS360 ---
CHEST-1 VIEW - 07/11/2019 INDICATION: SOB COMPARISON: 06/14/2019 FINDINGS: There is significant cardiomegaly and pulmonary vascular congestion. There is some increasing hazy infiltrate or atelectasis in the right lung base. Lung volumes are lower. No pneumothorax or pleural effusion. IMPRESSION: Nonspecific findings. Electronically signed by Robert Ness 07/11/2019 9:12 PM
[2019-07-11 21:21] LABS: BASO# 0.03 X1000 (0.0-0.2); BASO% 0.3 % (0.0-0.8); EOS# 0.04 X1000 (0.0-0.7); EOS% 0.4 % (0.0-10.0); HEMATOCRIT 36.8 % (37.0-47.0); HEMOGLOBIN 11.5 g/dL (12.0-16.0); IMM GRAN# 0.04 X1000 (0.0-0.04); IMM GRAN% 0.4 % (0.0-0.5); LYMPH# 1.29 X1000 (1.2-3.4); LYMPH% 14.3 % (20.5-51.1); MCH 31.2 PG (27-31); MCHC 31.3 g/dL (33-37); MCV 99.7 FL (81-99); MONO# 0.99 X1000 (0.11-0.59); NEUT# 6.63 X1000 (1.4-6.5); NEUT% 73.6 % (42.2-75.2); PLT 281 X1000 (130-400); RBC 3.69 XMIL (4.2-5.4); WBC 9.02 X1000 (4.8-10.8)
[2019-07-11 21:32] LABS: INR 1.03; PROTIME 13.6 Seconds (11.0-16.0)
[2019-07-11 21:33] LABS: PTT 26.4 Seconds (22.3-41.8)
[2019-07-11 21:54] LABS: URINE SOURCE CLEAN CATCH
[2019-07-11 21:55] LABS: AGAP 11; ALB/GLOB RATIO 1.1; ALBUMIN 3.9 g/dL (3.5-5.0); ALKALINE PHOSPHATASE 96 U/L (32-104); BUN 11 mg/dL (8-22); CALCIUM 8.7 mg/dL (8.8-10.2); CHLORIDE 102 mmol/L (98-107); CK PROFILE 40 U/L (24-173); COSMO 281; CREATININE 0.7 mg/dL (0.5-0.9); ESTIMATED GFR > 60; GLUCOSE 147 mg/dL (70-104); GOT 28 U/L (10-30); GPT 36 U/L (10-36); POTASSIUM 4.6 mmol/L (3.5-5.1); SODIUM 140 mmol/L (136-145); TCO2 27 mmol/L (25-35); TOTAL BILIRUBIN 0.29 mg/dL (0.20-1.00); TOTAL PROTEIN 7.5 g/dL (6.3-8.3)
[2019-07-11 22:23] LABS: BILIRUBIN URINE NEGATIVE (NEGATIVE); BLOOD URINE NEGATIVE (NEGATIVE); COLOR YELLOW; GLUCOSE URINE NEGATIVE (NEGATIVE); KETONE URINE NEGATIVE (NEGATIVE); LEUKOCYTES URINE NEGATIVE (NEGATIVE); NITRITE URINE NEGATIVE (NEGATIVE); PROTEIN URINE 50 mg/dL (NEGATIVE); SP GRAVITY URINE 1.015; TURBIDITY URINE CLEAR (CLEAR); UR EPITHELIAL CELLS <10 /HPF (<10); URINE BACTERIA NEGATIVE /HPF; URINE RBC <10 /HPF (<10); URINE WBC <10 /HPF (<10); UROBILINOGEN URINE NORMAL (NORMAL)
[2019-07-11] MEDS ORDERED: LASIX IV ONE (22:57)
--- NOTE | 2019-07-11 23:04 | PROVIDER DOCUMENTATION ---
This chart was entered by Margaret Lopez Scribe, acting as scribe for Cam Das MD. HPI-Respiratory General - General Chief Complaint: Shortness of Breath Stated Complaint: SOB Time Seen by Provider: 07/11/19 20:39 Source: patient Allergies/Adverse Reactions: Patient Allergies Allergy/AdvReac Type Severity Reaction Status Date / Time Sulfa (Sulfonamide Allergy ITCHING Verified 07/11/19 21:00 Antibiotics) Home Medications: Home Medication List Medication Instructions Recorded Confirmed Last Taken Type Albuterol Sulfate Inhaler 2 puff INH [id number] 05/21/12 07/11/19 06/04/19 08:00 History [Ventolin Hfa] Insulin Aspart [Novolog] 20 unit SQ TID 05/21/12 07/11/19 06/10/19 08:00 History Insulin Glargine [Lantus] 35 unit SUBQ BID 05/21/12 07/11/19 06/10/19 20:00 History Albuterol 2.5MG/Ipratrop 0.5MG 3 ml INH Q4H PRN PRN #90 neb 06/14/19 07/11/19 Unknown Rx [Duoneb (A & A)] Aspirin 325 mg PO DAILY tab 06/14/19 07/11/19 Unknown Rx LISINOpril [Prinivil] 20 mg PO DAILY #90 tab 06/14/19 07/11/19 Unknown Rx Levothyroxine [Synthroid] 50 mcg PO DAILY #90 tab 06/14/19 07/11/19 Unknown Rx Levothyroxine [Synthroid] 200 microgm PO DAILY #90 tab 06/14/19 07/11/19 Unknown Rx - History of Present Illness-Resp Nature of Presenting Problem: pt is a 54 yr old female presenting with shortness of breath and productive cough onset this AM, pt reports clear sputum, no relief with albuterol neb tx. pt denies fever/chills, no chest pain, no other complaints Quality of Pain: reports: none Severity in ED: reports: moderate Onset/Duration: reports: this morning Timing: reports: getting worse Exposure: reports: unknown cause Cough Quality/Degree: reports: moderate, productive cough, sputum (clear) Episode Frequency: occasional episodes Current Respiratory Medication Therapy: Initiated albuterol (albuterol neb-no relief) Modifying Factors: improves with: albuterol nebulizer (no relief) Associated Symptoms: reports: cough, shortness of breath. denies: fever/chills Similar Symptoms Previously?: No Recently seen or treated by another doctor?: No Review of Systems - Adult - REVIEW OF SYSTEMS - ADULT Constitutional: denies: chills, fever Eyes: reports: no symptoms reported Ears, Nose, Mouth & Throat: reports: no symptoms reported Cardiovascular: denies: chest pain, palpitations, syncope Respiratory: reports: cough, dyspnea on exertion, shortness of breath Gastrointestinal: denies: abdominal pain, nausea, vomiting Genitourinary: denies: dysuria, frequency Musculoskeletal: denies: muscle aches Integumentary: reports: no symptoms reported Neurological: denies: dizziness/vertigo, headache/migraines Psychiatric: reports: no symptoms reported Endocrine: reports: no symptoms reported Hematologic/Lymphatic: reports: no symptoms reported Allergic/Immunologic: reports: no symptoms reported All Other Systems: Reviewed and Negative Past History - Adult - PAST MEDICAL HISTORY-ADULT Review of Records: reports: Nursing Assessment Review, Medications Reviewed, Social history reviewed & non-contributory. Major Childhood Illnesses: reports: denies history Cardiovascular: reports: CHF, HTN Respiratory: reports: COPD Gastrointestinal: reports: denies history Obstetrical/Gynecological: reports: denies history Genitourinary: reports: denies history Musculoskeletal: reports: denies history Neurological: reports: denies history Endocrine/Immune: reports: denies history Other Conditions: reports: denies history - IMMUNIZATION STATUS Childhood Immunizations: See Nurse Assessment Flu Vaccine: See Nurse Assessment - FAMILY HISTORY Family History: reviewed, not pertinent - SOCIAL HISTORY Smoking: quit greater than 1 year Substance Use: denies Living Situation: family Physical Exam-General - PHYSICAL EXAM-ADULT Initial Vital Signs Reviewed: Yes - CONSTITUTIONAL General Appearance: alert, moderate distress, obese - EYES Eyes: PERRL/EOMI - HEAD, EARS, NOSE, MOUTH & THROAT HENMT: normocephalic/atraumatic, moist mucous membranes - NECK Neck: non-tender, full range of motion, supple, normal inspection - RESPIRATORY Respiratory: chest non-tender, rhonchi, wheezing, other (left side worse than right) - CARDIOVASCULAR Cardiovascular: normal peripheral pulses, tachycardia - GASTROINTESTINAL (ABDOMEN) Abdominal Exam: normal bowel sounds, non tender, soft - LYMPHATIC Lymphatic: no adenopathy - MUSCULOSKELETAL Back Exam: normal inspection Extremity: normal range of motion, non-tender, normal inspection - SKIN Integumentary: normal color, normal turgor, warm/dry - NEUROLOGIC Neurologic: grossly normal - PSYCHIATRIC Psych/Mental Status: normal mood/affect - HEART Score HEART Score: History: Moderately Suspicious HEART Score: ECG: Non-Specific Repolarization Disturbance/LBBB/PM HEART Score: Age: 45-65 Years HEART Score: Risk Factors for Atherosclerotic Disease: > or = 3 Risk Factors or History of Atherosclerotic Disease HEART Score: Troponin: 1-3x Normal Limit Total HEART Score:: 6 Progress - PLAN OF CARE/RESULTS Progress/Plan/Lab Results: Vital Signs - 8 hr 07/11/19 20:20 07/11/19 22:05 Temperature 98.6 F Pulse Rate 116 H 115 H Respiratory Rate 22 23 Blood Pressure 175/103 O2 Sat by Pulse Oximetry 89 L 98 Laboratory Results - last 24 hr 07/11/19 07/11/19 07/11/19 20:45 20:54 20:54 WBC RBC Hgb Hct MCV MCH MCHC RDW Std Deviation Plt Count MPV Immature Gran % (Auto) Neut % (Auto) Lymph % (Auto) [place] % (Auto) Eos % (Auto) Baso % (Auto) Immature Gran # (Auto) Neut # (Auto) Lymph # (Auto) [place] # (Auto) Eos # (Auto) Baso # (Auto) PT INR PTT (Actin FS) Sodium 140 Potassium 4.6 Chloride 102 Carbon Dioxide 27 Anion Gap 11 BUN 11 Creatinine 0.7 Estimated GFR/1.73 m2 > 60 BUN/Creatinine Ratio 16 Glucose 147 H Calculated Osmolality 281 Calcium 8.7 L Total Bilirubin 0.29 AST 28 ALT 36 Alkaline Phosphatase 96 Creatine Kinase 40 Troponin T High Sens Ina-[id number]-Xpkjsgcjqvk Pept Total Protein 7.5 Albumin 3.9 Globulin 3.6 Albumin/Globulin Ratio 1.1 Plasma Lactate 0.7 Urine Source CLEAN CATCH Urine Color YELLOW Urine Turbidity CLEAR Urine pH 7.0 Ur Specific [place] 1.015 Urine Protein 50 A Ur Glucose (Stick) NEGATIVE Ur Ketones (Stick) NEGATIVE Urine Blood NEGATIVE Urine Nitrite NEGATIVE Urine Bilirubin NEGATIVE Urobilinogen Dipstick NORMAL Urine Leukocytes NEGATIVE Urine WBC (Auto) <10 Urine RBC (Auto) <10 U Epithel Cells (Auto) <10 Urine Bacteria (Auto) NEGATIVE 0307/11/19 07/11/19 20:54 20:54 20:54 WBC 9.02 RBC 3.69 L Hgb 11.5 L Hct 36.8 L MCV 99.7 H MCH 31.2 H MCHC 31.3 L RDW Std Deviation 14.0 Plt Count 281 MPV 10.0 Immature Gran % (Auto) 0.4 Neut % (Auto) 73.6 Lymph % (Auto) 14.3 L [place] % (Auto) 11.0 H Eos % (Auto) 0.4 Baso % (Auto) 0.3 Immature Gran # (Auto) 0.04 Neut # (Auto) 6.63 H Lymph # (Auto) 1.29 [place] # (Auto) 0.99 H Eos # (Auto) 0.04 Baso # (Auto) 0.03 PT 13.6 INR 1.03 PTT (Actin FS) 26.4 Sodium Potassium Chloride Carbon Dioxide Anion Gap BUN Creatinine Estimated GFR/1.73 m2 BUN/Creatinine Ratio Glucose Calculated Osmolality Calcium Total Bilirubin AST ALT Alkaline Phosphatase Creatine Kinase Troponin T High Sens 33 H Xzf-[id number]-Kaolkxlfbfe Pept Total Protein Albumin Globulin Albumin/Globulin Ratio Plasma Lactate Urine Source Urine Color Urine Turbidity Urine pH Ur Specific [place] Urine Protein Ur Glucose (Stick) Ur Ketones (Stick) Urine Blood Urine Nitrite Urine Bilirubin Urobilinogen Dipstick Urine Leukocytes Urine WBC (Auto) Urine RBC (Auto) U Epithel Cells (Auto) Urine Bacteria (Auto) 07/11/19 20:54 WBC RBC Hgb Hct MCV MCH MCHC RDW Std Deviation Plt Count MPV Immature Gran % (Auto) Neut % (Auto) Lymph % (Auto) [place] % (Auto) Eos % (Auto) Baso % (Auto) Immature Gran # (Auto) Neut # (Auto) Lymph # (Auto) [place] # (Auto) Eos # (Auto) Baso # (Auto) PT INR PTT (Actin FS) Sodium Potassium Chloride Carbon Dioxide Anion Gap BUN Creatinine Estimated GFR/1.73 m2 BUN/Creatinine Ratio Glucose Calculated Osmolality Calcium Total Bilirubin AST ALT Alkaline Phosphatase Creatine Kinase Troponin T High Sens Gic-[id number]-Mbqjvpjozsz Pept 8092 H Total Protein Albumin Globulin Albumin/Globulin Ratio Plasma Lactate Urine Source Urine Color Urine Turbidity Urine pH Ur Specific [place] Urine Protein Ur Glucose (Stick) Ur Ketones (Stick) Urine Blood Urine Nitrite Urine Bilirubin Urobilinogen Dipstick Urine Leukocytes Urine WBC (Auto) Urine RBC (Auto) U Epithel Cells (Auto) Urine Bacteria (Auto) Orders Category Date Time Status Cardiac Monitoring NOW Care 07/11/19 20:43 Active IV Insertion NOW Care 07/11/19 20:43 Completed NEWS Score >or=5:Order NEWS Bundle S.O. NOW Care 07/11/19 20:43 Active Notify Provider of NEWS Score NOW Care 07/11/19 20:43 Active CHEST-1 VIEW [RAD] Stat Exams 07/11/19 20:43 Completed ABG [RESP] Routine Lab 07/11/19 22:59 Ordered BLOOD CULTURE [BLDCUL] Stat Lab 07/11/19 20:43 Uncollected CBC WITH DIFF [HEME] Stat Lab 07/11/19 20:54 Completed CK PROFILE [SP CHEM] Stat Lab 07/11/19 20:54 Completed COMPREHENSIVE METABOLIC PANEL [CHEM] Stat Lab 07/11/19 20:54 Completed LACTATE, PLASMA [CHEM] Lab 07/11/19 20:54 Completed LACTATE, PLASMA [CHEM] Lab 07/11/19 23:45 Uncollected LACTATE, PLASMA [CHEM] Lab 07/12/19 02:45 Uncollected PRO B-NATRIURETIC PEPTIDE Stat Lab 07/11/19 20:54 Completed PROTIME WITH INR [COAG] Stat Lab 07/11/19 20:54 Completed PTT [COAG] Stat Lab 07/11/19 20:54 Completed TROPONIN T HIGH SENSITIVITY Stat Lab 07/11/19 20:54 Completed URINALYSIS W/POSS RFLX CULT [URINALYSIS] Stat Lab 07/11/19 20:45 Completed Albuterol 2.5MG/Ipratrop 0.5MG [Duoneb (A & A)] Med 07/11/19 20:54 Discontinued 3 ml INH NOW ONE Furosemide [Lasix] Med 07/11/19 22:57 Discontinued 40 mg IV NOW ONE Aerosol Treatments Routine Oth 07/11/19 20:54 Completed Aerosol Treatments Stat Oth 07/11/19 20:54 Completed O2 Per Protocol Stat Oth 07/11/19 20:43 Completed EKG [EKG] Stat Ther 07/11/19 20:25 Ordered Result Diagrams: 07/11/19 20:54 07/11/19 20:54 - EKG 1 Time of EKG reading by physician:: 20:34 EKG Read and Signed by:: Cam Das EKG Interpretation (*Must complete 3 of following elements*): Abnormal (possible left atrial enlargement possible anterior infarct-age undetermined) Rate: 103 Rhythm: sinus tach [place]: normal QRS: normal [place] Interval: normal ST Wave: normal - XRAY 1 XRAY Study: Chest Impression: Abnormal (Department of Imaging Patient: SUSAN RG Date: 07/11/19#: [id number] : 1965ADM Status: [facility]#: [id number] Age/Sex: 54/FRoom/Bed: Loc: ED Ordering Physician: Cam Das MD Family Physician: None,PCP Reason for Procedure: SOB Signed CHEST-1 VIEW - 07/11/2019 INDICATION: SOB COMPARISON: 06/14/2019 FINDINGS: There is significant cardiomegaly and pulmonary vascular congestion. There is some increasing hazy infiltrate or atelectasis in the right lung base. Lung volumes are lower. No pneumothorax or pleural effusion. IMPRESSION: Nonspecific findings. Electronically signed by Robert Ness 07/11/2019 9:12 PM 07/11/192111 Interpreting Physician: Robert Ness MD Dictated Date/Time: 07/11/192110 cc: Cam Das MD; None,PCP) - CONSULTS/PCP/HOSPITALIST Notification #1 *Consult/PCP/Hospitalist*: Dr Fuchs Time Discussed: 23:00 Reason/Comments: plan of care for pt admit Consult Disposition: Admit Departure - Departure Date of Disposition Decision: 07/11/19 Time of Disposition Decision: 23:02 DIAGNOSIS: CHF exacerbation, SOB (shortness of breath) Disposition: ADMITTED INPATIENT 09 Certified Medical Emergency: Emergent Condition: Fair Referrals and Follow-Ups: None,PCP [Primary Care Provider] - - Critical Care Note This patient required my direct & personal management of CC.: No Attestation - Physician/ BUFFY Attestation Patient care was provided by Advanced Practice Provider:: No The physician spent face to face time with patient:: Yes Advanced Practice Provider documentation review:: Supervising physician onsite and consulted in the evaluation and care of this patient. The physician did have a face to face encounter with the patient. This chart was documented by the indicated scribe, (Margaret Lopez, Juan) and accurately reflects the services I performed and decisions made by me, Cam Das MD, as attested by the provider's signature.
[2019-07-11 23:20] LABS: ALLEN TEST YES; BE 1.3 mmoll (-3.0-3.0); BLOOD TYPE ARTERIAL; HCO3-(ACT) 25.8 mmoll (20.0-26.0); METHB 0.8 % (0.0-1.5); O2(CT) 15.6 mL/dL (15.0-23.0); O2HB 92.8 % (95.0-99.0); PCO2(98.6) 44 mmHg (35-45); PO2(98.6) 73 mmHg (60-100); SAMPLE BLOOD; SAO2 95.5 % (95.0-100.0); THB 11.9 g/dL (11.5-17.4); pH(98.6) 7.39 (7.35-7.45)
[2019-07-11 23:21] LABS: MODALITY CANNULA
[2019-07-12] MEDS ORDERED: ZOFRAN IV PRN (01:44)
--- NOTE | 2019-07-12 05:05 | HISTORY AND PHYSICAL ---
PRIMARY CARE PROVIDER: None. CHIEF COMPLAINT: Shortness of breath and cough times several days. HISTORY OF PRESENTING ILLNESS: A 54-year-old obese female with a history of COPD, CHF, diabetes mellitus type 2, hypothyroidism, and hypertension, who had presented to emergency department with 3 to 4 days history of progressive shortness of breath. The patient states that she was coughing. She was having difficulty breathing and subsequently she had come to the emergency department. In the ED, she was evaluated and was noted that her ProBNP was elevated to around 8000. She was given IV diuresis in the ED and she had some improvement. Due to her presenting symptoms she will require admission for further management. At the time of my examination, patient denied any headache, fever, chills, chest pain, hemoptysis, but complained of shortness of breath. PAST MEDICAL HISTORY: Includes COPD, diabetes mellitus type 2, hypothyroidism, CHF, morbid obesity. PAST SURGICAL HISTORY: Hysterectomy. ALLERGIES: Sulfa. CURRENT MEDICATIONS: Albuterol inhaler q.4 hours, aspirin 325 mg p.o. daily, NovoLog 20 units subcu t.i.d., Lantus 35 units subcutaneous b.i.d., levothyroxine 50 mcg p.o. daily, lisinopril 20 mg p.o. daily. SOCIAL HISTORY: A 40+ pack-years history of smoking. Denies any history of alcohol or illicit drug use. FAMILY HISTORY: No history of coronary artery disease. REVIEW OF SYSTEMS: Fourteen point review of system is as in HPI. Other systems negative. PHYSICAL EXAMINATION: GENERAL: Cooperative, friendly female. She is resting more comfortably now. VITAL SIGNS: Temperature 98.6 degrees, pulse 116, respirations 22, blood pressure 175/103. She is saturating 89%. HEENT: Atraumatic normocephalic. Extraocular movements intact. PERRLA. NECK: No masses. CHEST: Bibasilar rales. CARDIOVASCULAR: Regular rate and rhythm. ABDOMEN: Soft, obese. Positive bowel sounds. EXTREMITIES: +1 edema. NEUROLOGIC: She is awake, alert, oriented x3. GENITOURINARY: No bladder distention. SKIN: Warm. LABORATORIES AND STUDIES: WBC 9.02, hemoglobin 11.5, hematocrit 36.8, platelets 281,000. Blood gas shows pH of 7.39, pCO2 of 44. Sodium 140, potassium 4.6, chloride 102, CO2 is 27, BUN 11, creatinine 0.7. Glucose is 147. ProBNP is 8092. Chest x-ray shows cardiomegaly and pulmonary vascular congestion. ASSESSMENT: A 54-year-old female with a history of morbid obesity, chronic obstructive pulmonary disease, diabetes mellitus type 2 and congestive heart failure, who had presented to emergency department with 3 to 4 days history of worsening shortness of breath. She was evaluated in the emergency department. She was found to be in heart failure and she will require admission for further management. ASSESSMENT: 1. Acute congestive heart failure exacerbation. 2. Chronic obstructive pulmonary disease. 3. Diabetes mellitus type 2. 4. Hypertension. PLAN: 1. We will admit patient to medical floor with telemetry. 2. Continue with gentle diuresis with Lasix. 3. We will continue with duo nebs. 4. We will monitor blood glucose. Put patient on sliding scale insulin regimen. 5. Monitor blood pressure. Resume antihypertensive agent. 6. Put patient on DVT prophylaxis with Lovenox. 7. We will continue to follow, reassess, make further recommendation based on patient's clinical course. cc: Arnoldo Fuchs MD
[2019-07-12] MEDS: DUONEB (A & A) INH SCH ×6 (05:27→23:19)
[2019-07-12] MEDS: HUMULIN R SUBQ SCH ×4 (06:22→21:00)
[2019-07-12] MEDS: LOVENOX SUBQ SCH (06:38)
[2019-07-12] MEDS: SYNTHROID PO SCH (06:38)
--- NOTE | 2019-07-12 06:45 | EKG Report ---
Test Performed on : 07/11/2019 8:34:52 PM Test Reason : SOB Blood Pressure : / mmHG Vent. Rate : 103 BPM Atrial Rate : 103 BPM P-R Int : 160 ms QRS Dur : 080 ms QT Int : 390 ms P-R-T Axes : 045 -18 041 degrees QTc Int : 510 ms Sinus tachycardia. Possible Left atrial enlargement Possible Anterior infarct , age undetermined Abnormal ECG When compared with ECG of 12-JUN-2019 07:14, Vent. rate has increased BY 47 BPM Non-specific change in ST segment in Inferior leads Nonspecific T wave abnormality now evident in Anterior leads Unconfirmed Result
[2019-07-12] MEDS: ASPIRIN PO SCH (08:56)
[2019-07-12] MEDS: PRINIVIL PO SCH (08:57)
[2019-07-12] MEDS: LASIX IV SCH ×2 (09:05→21:00)
[2019-07-13] MEDS: DUONEB (A & A) INH SCH ×6 (03:37→23:08)
[2019-07-13] MEDS: LOVENOX SUBQ SCH (06:42)
[2019-07-13] MEDS: HUMULIN R SUBQ SCH ×4 (06:42→21:10)
[2019-07-13] MEDS: SYNTHROID PO SCH ×2 (06:42)
[2019-07-13 07:50] LABS: BASO# 0.02 X1000 (0.0-0.2); BASO% 0.2 % (0.0-0.8); EOS# 0.01 X1000 (0.0-0.7); EOS% 0.1 % (0.0-10.0); HEMATOCRIT 35.3 % (37.0-47.0); HEMOGLOBIN 11.2 g/dL (12.0-16.0); IMM GRAN# 0.03 X1000 (0.0-0.04); IMM GRAN% 0.3 % (0.0-0.5); LYMPH# 1.24 X1000 (1.2-3.4); LYMPH% 14.2 % (20.5-51.1); MCH 31.6 PG (27-31); MCHC 31.7 g/dL (33-37); MCV 99.7 FL (81-99); MONO# 1.26 X1000 (0.11-0.59); MONO% 14.4 % (1.7-9.3); MPV 10.1 FL (7.4-10.4); NEUT% 70.8 % (42.2-75.2); PLT 250 X1000 (130-400); RBC 3.54 XMIL (4.2-5.4); WBC 8.76 X1000 (4.8-10.8)
[2019-07-13] MEDS: TUSSIONEX LIQUID PO SCH ×2 (08:05→21:14)
[2019-07-13 08:20] LABS: AGAP 13; BUN 11 mg/dL (8-22); CALCIUM 8.6 mg/dL (8.8-10.2); CHLORIDE 93 mmol/L (98-107); COSMO 274; CREATININE 0.6 mg/dL (0.5-0.9); ESTIMATED GFR > 60; GLUCOSE 152 mg/dL (70-104); POTASSIUM 3.6 mmol/L (3.5-5.1); SODIUM 136 mmol/L (136-145); TCO2 30 mmol/L (25-35)
[2019-07-13] MEDS: MUCOMYST 20% INH SCH ×2 (08:27→19:59)
--- NOTE | 2019-07-13 09:18 | PROGRESS NOTE ---
DATE: 07/13/2019 The patient reports still coughing. She requests actually something for coughing. The patient is still short of breath. OBJECTIVE: Vital Signs: Temperature 98.5 degrees, heart rate 99, respiratory rate 20, blood pressure 137/94, O2 saturation 92% on 2 L nasal cannula. General Examination: The is a 54-year- old female lying in bed, in no acute distress. Cardiovascular: S1, S2 heard. No murmurs, gallops, or rubs. Regular rate and rhythm. Respiratory: Bibasilar rhonchi is noted mostly in both bases. Patient not using any accessory muscles or having work of breathing. Abdomen: Soft, nontender to palpation. Bowel sounds present. No organomegaly. Extremities: No clubbing, cyanosis, 1+ pitting edema in both lower extremities. Neurological: Patient is alert and oriented x3. Moves all 4 extremities. LABORATORY DATA: Reviewed. ASSESSMENT AND PLAN: 1. Acute respiratory failure secondary to chronic obstructive pulmonary disease exacerbation. We will continue with DuoNeb every 4 hours as scheduled. We have added Mucomyst to her current treatment today. 2. Acute congestive heart failure. Patient has been placed on Lasix 40 mg IV q.12 hours. We will continue to monitor ins and outs strictly. 3. Diabetes mellitus type 2. We will continue to check Accu-Chek before meals and also at bedtime. 4. Hypertension. Blood pressure is under control. We will continue with the same management. cc: Darren Mejia MD
[2019-07-13] MEDS: ASPIRIN PO SCH (10:36)
[2019-07-13] MEDS: LASIX IV SCH ×2 (10:36→21:12)
[2019-07-13] MEDS: PRINIVIL PO SCH (10:36)
[2019-07-13] MEDS: AMBIEN PO SCH (21:11)
[2019-07-14] MEDS: DUONEB (A & A) INH SCH ×6 (03:38→23:17)
[2019-07-14] MEDS: LOVENOX SUBQ SCH (06:06)
[2019-07-14] MEDS: HUMULIN R SUBQ SCH ×4 (06:06→21:21)
[2019-07-14] MEDS: SYNTHROID PO SCH ×2 (06:08)
[2019-07-14] MEDS: MUCOMYST 20% INH SCH ×2 (07:44→19:45)
[2019-07-14] MEDS: ASPIRIN PO SCH (08:34)
[2019-07-14] MEDS: PRINIVIL PO SCH (08:34)
[2019-07-14] MEDS: LASIX IV SCH ×3 (08:35→21:21)
[2019-07-14] MEDS: TUSSIONEX LIQUID PO SCH ×2 (08:35→21:21)
[2019-07-14] MEDS ORDERED: VANCOMYCIN IV PER PHARMACY MISC SCH (10:45)
[2019-07-14 11:20] LABS: ALLEN TEST YES; BE 12.6 mmoll (-3.0-3.0); BLOOD TYPE ARTERIAL; HCO3-(ACT) 34.7 mmoll (20.0-26.0); O2(CT) 14.3 mL/dL (15.0-23.0); O2HB 94.7 % (95.0-99.0); PO2(98.6) 76 mmHg (60-100); SAMPLE BLOOD; SAO2 97.9 % (95.0-100.0); THB 10.7 g/dL (11.5-17.4); pH(98.6) 7.34 (7.35-7.45)
[2019-07-14 11:23] LABS: MODALITY CANNULA; PCO2(98.6) 76 mmHg (35-45)
--- NOTE | 2019-07-14 11:31 | PROGRESS NOTE ---
DATE: 07/14/2019 SUBJECTIVE: The patient reports coughing more. She is more short of breath, and her oxygen needs were up from 2 to 5 L of oxygen by nasal count, and is still struggling with breathing. OBJECTIVE: Vital Signs: Temperature 99.7 degrees, heart rate 110, respiratory rate 24, blood pressure 148/97, O2 saturation 95% on 5 L nasal cannula. General: This is a 54-year-old, female, lying in bed in mild respiratory distress, tachypneic. Cardiovascular: S1, S2 heard. No murmurs, gallops, or rubs. Regular rate and rhythm. Respiratory: Bibasilar rhonchi and wheezing noted in both pulmonary joe. The patient is not using accessory muscles or having work of breathing. Abdomen: Soft. Nontender to palpation. Bowel sounds present. No organomegaly. Extremities: No clubbing or cyanosis, but there is still 1+ pitting edema in both lower extremities. Neurological: The patient is alert and oriented x3. Moves all 4 extremities. LABORATORY DATA: Reviewed. ASSESSMENT AND PLAN: 1. Acute respiratory failure secondary to chronic obstructive pulmonary disease exacerbation. At this point, considering that this patient is not getting better, I am going to get a CT angiogram of the chest to see there is any pneumonia or pulmonary embolism going on. In the meantime, we will add strong antibiotics and breathing treatments as well. 2. Acute congestive heart failure. Will continue with Lasix 40 mg intravenously every 12 hours. 3. Diabetes mellitus type 2. Will continue with sliding scale insulin before meals and also at bedtime, and Accu-Cheks as well. 4. Hypertension. Blood pressure is under control. Will continue with the same medications. 5. Disposition. At this point, considering that this patient's clinical status is not improving, will move her to [facility] unit today. cc: Darren Mejia MD
[2019-07-14] MEDS: ZOSYN 3.375 GM in NS 50 ML IV SCH ×3 (11:47→21:21)
[2019-07-14] MEDS ORDERED: VANCOMYCIN 2 GM in NS 500 ML IV ONE (12:00)
[2019-07-14 12:14] LABS: BASO# 0.02 X1000 (0.0-0.2); BASO% 0.2 % (0.0-0.8); HEMATOCRIT 35.2 % (37.0-47.0); HEMOGLOBIN 10.9 g/dL (12.0-16.0); IMM GRAN# 0.03 X1000 (0.0-0.04); IMM GRAN% 0.3 % (0.0-0.5); LYMPH% 12.9 % (20.5-51.1); MCH 31.6 PG (27-31); MONO# 1.23 X1000 (0.11-0.59); MONO% 13.2 % (1.7-9.3); MPV 10.2 FL (7.4-10.4); NEUT# 6.85 X1000 (1.4-6.5); NEUT% 73.4 % (42.2-75.2); PLT 216 X1000 (130-400); RBC 3.45 XMIL (4.2-5.4); RDW 14.1 % (11.5-14.5); WBC 9.33 X1000 (4.8-10.8)
[2019-07-14 12:20] LABS: AGAP 9; BUN 15 mg/dL (8-22); CHLORIDE 90 mmol/L (98-107); COSMO 279; CREATININE 0.6 mg/dL (0.5-0.9); ESTIMATED GFR > 60; GLUCOSE 238 mg/dL (70-104); POTASSIUM 3.6 mmol/L (3.5-5.1); SODIUM 135 mmol/L (136-145); TCO2 36 mmol/L (25-35)
--- NOTE | 2019-07-14 13:15 | Diag Imaging Result Doc PS360 ---
EXAM: CT ANGIOGRM PULMONARY ARTERIES INDICATION: suspected PE TECHNIQUE: This exam was performed using automated exposure control, adjustment of mA or kV according to patient size, and/or use of iterative reconstruction technique. Thin section axial images and 3-D MIPS were obtained. COMPARISON: 06/11/2019 FINDINGS: There is no evidence of pulmonary embolism. There is mild aortic atherosclerotic calcification. There is no evidence of aortic aneurysm or dissection. There is stable cardiomegaly. There is trace pericardial fluid that has decreased since the previous study. No significant mediastinal or hilar lymphadenopathy is appreciated. There is stable scattered small shotty lymph nodes. There is subsegmental atelectasis at both lower lung zones. There has been development of vague tree-in-bud opacities throughout both lungs but predominantly on the right indicating bronchiolitis. There are mild patchy groundglass opacities bilaterally. There is interstitial thickening with a basilar predominance that probably represents a component of interstitial edema. There is mild bronchial mucosal thickening at the lower lung zones indicating bronchitis. Limited views of the upper abdomen reveals several calcified stones in the gallbladder lumen, stable. IMPRESSION: 1.Patchy groundglass opacities with vague tree-in-bud densities bilaterally but more prominent on the right indicating bronchiolitis with areas of pneumonia, likely infectious. 2.Bronchial mucosal thickening at the bases suggesting bronchitis. 3.The basilar interstitial thickening indicating a component of mild interstitial edema. 4.Bilateral subsegmental atelectasis at the lower lung zones. 5.No evidence of pulmonary embolism. Electronically signed by Leonid Ghosh 07/14/2019 1:12 PM
[2019-07-14] MEDS: AMBIEN PO SCH (21:21)
[2019-07-14] MEDS: VANCOMYCIN 1,600 MG in NS 250 ML IV SCH (22:54)
[2019-07-15] MEDS: DUONEB (A & A) INH SCH ×6 (03:25→23:13)
[2019-07-15] MEDS: ZOSYN 3.375 GM in NS 50 ML IV SCH ×4 (03:33→21:03)
[2019-07-15 05:13] LABS: ALLEN TEST YES; BE 14.4 mmoll (-3.0-3.0); BLOOD TYPE ARTERIAL; HCO3-(ACT) 36.1 mmoll (20.0-26.0); O2(CT) 15.4 mL/dL (15.0-23.0); O2HB 95.4 % (95.0-99.0); PO2(98.6) 91 mmHg (60-100); SAMPLE BLOOD; SAO2 97.4 % (95.0-100.0); THB 11.4 g/dL (11.5-17.4); pH(98.6) 7.42 (7.35-7.45)
[2019-07-15 05:22] LABS: PCO2(98.6) 64 mmHg (35-45)
[2019-07-15 05:23] LABS: MODALITY BI PAP
[2019-07-15] MEDS: SYNTHROID PO SCH ×2 (06:11→06:14)
[2019-07-15] MEDS: LOVENOX SUBQ SCH (06:11)
[2019-07-15] MEDS: HUMULIN R SUBQ SCH ×4 (06:44→21:03)
[2019-07-15 06:51] LABS: BASO# 0.02 X1000 (0.0-0.2); BASO% 0.3 % (0.0-0.8); EOS# 0.01 X1000 (0.0-0.7); EOS% 0.1 % (0.0-10.0); HEMATOCRIT 34.7 % (37.0-47.0); HEMOGLOBIN 10.5 g/dL (12.0-16.0); IMM GRAN# 0.02 X1000 (0.0-0.04); IMM GRAN% 0.3 % (0.0-0.5); LYMPH# 1.31 X1000 (1.2-3.4); LYMPH% 18.5 % (20.5-51.1); MCH 31.4 PG (27-31); MCHC 30.3 g/dL (33-37); MCV 103.9 FL (81-99); MONO# 1.47 X1000 (0.11-0.59); MONO% 20.7 % (1.7-9.3); MPV 9.9 FL (7.4-10.4); NEUT# 4.27 X1000 (1.4-6.5); NEUT% 60.1 % (42.2-75.2); PLT 210 X1000 (130-400); RBC 3.34 XMIL (4.2-5.4); RDW 14.2 % (11.5-14.5)
[2019-07-15 07:15] LABS: AGAP 11; BUN 19 mg/dL (8-22); CALCIUM 7.8 mg/dL (8.8-10.2); CHLORIDE 95 mmol/L (98-107); COSMO 290; CREATININE 0.7 mg/dL (0.5-0.9); ESTIMATED GFR > 60; GLUCOSE 218 mg/dL (70-104); POTASSIUM 3.5 mmol/L (3.5-5.1); SODIUM 141 mmol/L (136-145); TCO2 35 mmol/L (25-35)
[2019-07-15 08:01] LABS: LYMPHS 23 % (21-51); MONO 8 % (1-9); SEGS 69 % (42-75)
[2019-07-15] MEDS: MUCOMYST 20% INH SCH ×2 (08:14→19:31)
[2019-07-15] MEDS: ASPIRIN PO SCH (08:48)
[2019-07-15] MEDS: LASIX IV SCH ×2 (08:48→21:03)
[2019-07-15] MEDS: PRINIVIL PO SCH (08:48)
[2019-07-15] MEDS: TUSSIONEX LIQUID PO SCH ×2 (08:48→21:03)
[2019-07-15] MEDS: VANCOMYCIN 1,600 MG in NS 250 ML IV SCH (11:45)
--- NOTE | 2019-07-15 14:57 | PROGRESS NOTE ---
DATE: 07/15/2019 SUBJECTIVE: Patient reports she is breathing better. A little bit sleepy this morning upon my examination. No acute issues noted as per nursing staff overnight. OBJECTIVE: Vital Signs: Temperature 98.0 degrees, heart rate 92, respiratory rate 16, blood pressure 142/70, O2 saturation 100% on BiPAP. General Examination: This is a 54-year-old, female lying in bed, in no acute distress. Cardiovascular Examination: S1 and S2 heard. No murmurs, gallops, or rubs. Regular rate and rhythm. Respiratory Examination: Bibasilar rhonchi and wheezing noted in both pulmonary joe, basically unchanged in comparing with yesterday. Patient is not using any accessory muscles or having work of breathing. Abdomen: Soft, nontender to palpation. Bowel sounds present. No organomegaly. Extremities: No clubbing, cyanosis, or edema. Peripheral pulses present in both legs. Neurological Examination: The patient is alert and oriented x3. Moves 4 extremities. Laboratory Data: White cell count 7.1, hemoglobin 10.5, hematocrit 34.7, platelets 210,000. ABG shows pH 7.42, with pCO2 of 64, PO2 of 61. BMP shows blood sugar is 218 and calcium 7.8. A pulmonary arteriogram done yesterday showed patchy ground-glass opacities with big tree-in-bud densities bilaterally but more prominent on the right, indicating bronchiolitis with area of pneumonia, likely bronchial mucosal thickening at the base, suggesting bronchitis. The bibasilar interstitial thickening indicated a component of mild interstitial edema. No evidence of pulmonary embolism. ASSESSMENT AND PLAN: 1. Acute respiratory failure secondary to chronic obstructive pulmonary disease exacerbation. The patient was transferred to [facility] because she was short of breath and more confused. CT of the chest shows results as above. At this point, patient is feeling better, using a BiPAP mask. Her CO2 was elevated but now it is getting better. We will continue with the same antibiotic management and we will go from there. 2. Acute congestive heart failure. X-ray shows impairment, so we will continue with Lasix 40 mg intravenous every 12 hours. 3. Diabetes mellitus type 2. We will continue with sliding scale insulin, and Accu-Chek before meals and also at bedtime. 4. Hypertension. Blood pressure is under control. We will continue with the same medication. 5. Disposition. We will continue to monitor this patient here in the [facility]. cc: Darren Mejia MD [facility]
[2019-07-15] MEDS: AMBIEN PO SCH (21:03)
--- NOTE | 2019-07-16 00:07 | PULMONOLOGY CONSULTATION ---
DATE: 07/15/2019 REQUESTING CLINICIAN: Dr. Sprague. REASON FOR CONSULTATION: Respiratory failure with pneumonia. HISTORY OF PRESENT ILLNESS: Ms. Carlson is a 54-year-old white female with COPD, ongoing tobacco use and gastroesophageal reflux, who was discharged from this hospital on 06/14/2019 with a COPD exacerbation. The patient resumed smoking at the time of discharge. She reports she has never fully recovered from her prior illness. She continues to have cough with intermittent sputum production. She does eat a large meal around 6:30 and goes to bed around 8. She sometimes will eat after supper. She has previously undergone a cardiac catheterization due to reflux associated chest pain. She presented to the emergency room with increased cough with increased shortness of breath. CT pulmonary angiogram was performed, which revealed ground-glass changes and subsegmental atelectasis, which was new from prior scan a month ago. PAST MEDICAL HISTORY/PROBLEM LIST: 1. Chronic obstructive pulmonary disease with ongoing tobacco use. 2. Morbid obesity. 3. Gastroesophageal reflux. 4. Type 2 diabetes mellitus. 5. Hypothyroidism. 6. Hypertension. 7. Status post cholecystectomy. SOCIAL HISTORY: The patient continues to smoke. Denies alcohol use. FAMILY HISTORY: Noncontributory to current presentation. REVIEW OF SYSTEMS: As noted in the HPI. PHYSICAL EXAMINATION: General: Reveals an obese white female resting comfortably in no distress. Vital Signs: BP is 127/79, heart rate 92, respiratory rate 23, oxygen saturation 100%. HEENT: Pupils are equal and reactive. Oropharynx is clear. Neck: Supple. Chest: Reveals rhonchi bilaterally. Cardiac: S1, S2. Abdomen: Obese and soft. Extremities: Without edema. LABORATORY DATA: CT scan as per HPI. White blood count 7.10, hemoglobin 10.5, platelet count 210,000. Arterial blood gas reveals a pH of 7.42, pCO2 of 64, pO2 of 91. IMPRESSION: A 54-year-old with: 1. Mild bilateral pneumonia. 2. Gastroesophageal reflux with poor dietary hygiene. 3. Chronic obstructive pulmonary disease with ongoing tobacco use. 4. Morbid obesity. 5. Acute on chronic hypercapnic respiratory failure. 6. Acute on chronic hypoxemic respiratory failure. 7. Nicotine addiction with ongoing tobacco use. RECOMMENDATIONS: 1. Continue current antibiotic regimen as you are doing. 2. Continue bronchodilators. 3. Encourage the patient to discontinue all tobacco products. 4. Recommend strict reflux precautions. The patient was instructed to eat a small meal around 4:00 p.m. in the evening and not to eat after supper. 5. Long-term prognosis depends on her ability to follow reflux precautions, stop smoking, and lose weight. cc: Jef Sanchez MD
[2019-07-16] MEDS: VANCOMYCIN 1,600 MG in NS 250 ML IV SCH ×3 (00:33→23:29)
[2019-07-16] MEDS: ZOSYN 3.375 GM in NS 50 ML IV SCH ×4 (03:26→21:29)
[2019-07-16] MEDS: DUONEB (A & A) INH SCH ×6 (03:36→22:57)
[2019-07-16 05:54] LABS: BASO# 0.08 X1000 (0.0-0.2); BASO% 1.4 % (0.0-0.8); EOS# 0.04 X1000 (0.0-0.7); EOS% 0.7 % (0.0-10.0); HEMATOCRIT 34.7 % (37.0-47.0); HEMOGLOBIN 10.6 g/dL (12.0-16.0); LYMPH# 2.05 X1000 (1.2-3.4); MCH 31.5 PG (27-31); MCHC 30.5 g/dL (33-37); MCV 103.3 FL (81-99); MONO# 0.96 X1000 (0.11-0.59); MONO% 16.4 % (1.7-9.3); MPV 9.6 FL (7.4-10.4); NEUT# 2.73 X1000 (1.4-6.5); NEUT% 46.5 % (42.2-75.2); PLT 209 X1000 (130-400); RBC 3.36 XMIL (4.2-5.4); RDW 14.1 % (11.5-14.5); WBC 5.86 X1000 (4.8-10.8)
[2019-07-16] MEDS: LOVENOX SUBQ SCH (06:15)
[2019-07-16] MEDS: SYNTHROID PO SCH ×2 (06:15)
[2019-07-16 06:28] LABS: AGAP 11; BUN 16 mg/dL (8-22); CALCIUM 7.8 mg/dL (8.8-10.2); CHLORIDE 90 mmol/L (98-107); COSMO 282; CREATININE 0.7 mg/dL (0.5-0.9); ESTIMATED GFR > 60; GLUCOSE 120 mg/dL (70-104); POTASSIUM 3.4 mmol/L (3.5-5.1); SODIUM 140 mmol/L (136-145); TCO2 39 mmol/L (25-35)
[2019-07-16 06:41] LABS: ALLEN TEST YES; BE 17.6 mmoll (-3.0-3.0); BLOOD TYPE ARTERIAL; HCO3-(ACT) 38.6 mmoll (20.0-26.0); METHB 0.8 % (0.0-1.5); O2(CT) 14.2 mL/dL (15.0-23.0); O2HB 93.3 % (95.0-99.0); PO2(98.6) 66 mmHg (60-100); SAMPLE BLOOD; SAO2 95.3 % (95.0-100.0); THB 10.8 g/dL (11.5-17.4); pH(98.6) 7.46 (7.35-7.45)
[2019-07-16 06:43] LABS: MODALITY CANNULA
[2019-07-16 06:44] LABS: PCO2(98.6) 62 mmHg (35-45)
[2019-07-16] MEDS: HUMULIN R SUBQ SCH ×4 (06:50→21:35)
--- NOTE | 2019-07-16 07:28 | PROGRESS NOTE ---
DATE: 07/16/2019 SUBJECTIVE: Patient reports she is breathing better. Upon my examination, she definitely breathes better, less tachypneic, more awake and alert. No acute issues noted as per nursing staff overnight. OBJECTIVE: Vital Signs: Temperature 98.1 degrees, heart rate 68, respiratory rate 18, blood pressure 140/60, O2 saturation 97% on 3 L nasal cannula. General: Disease a 54-year-old female, lying in bed, in no acute distress. Cardiovascular: S1 and S2 heard. No murmurs, gallops, or rubs. Regular rate and rhythm. Respiratory: Bibasilar rhonchi and wheezing noted in both pulmonary joe, basically unchanged compared with the last 2 days. Patient is not using any accessory muscles or having work of breathing. Abdomen: Soft, nontender to palpation. Bowel sounds present. No organomegaly. Extremities: No clubbing, cyanosis, or edema. Peripheral pulses present in both legs. Neurological: Patient is alert and oriented x3. Moves 4 extremities. LABORATORY DATA: White cell count is 5.8, hemoglobin 10.6, hematocrit 34.7, platelets 209,000 with ABG that shows pH of 7.46 with pCO2 62, PO2 66 and BMP reveals potassium 3.4, glucose 120, calcium 7.8. ASSESSMENT AND PLAN: 1. Acute respiratory failure secondary to chronic obstructive pulmonary disease exacerbation and mild bilateral pneumonia. Patient is on vancomycin and Zosyn. Today is #2 for both medications. Clinically this patient is doing better. Her oxygen needs are getting down and the ABG still shows CO2 retention but getting better. I think at this point, we are going to continue with the same management. Pulmonary has been consulted. We will follow recommendations. 2. Congestive heart failure. We will continue with Lasix 40 mg IV q.12 hours. 3. Diabetes mellitus type 2. We will continue with sliding scale insulin and Accu-Chek before meals and also at bedtime. 4. Hypertension. Blood pressure is under control. We will continue with the same management. 5. Disposition. At this point, patient is getting much better. I think she will need to be more days here in the hospital but she is stable enough to be transferred to a regular floor today. cc: Darren Mejia MD
[2019-07-16] MEDS: MUCOMYST 20% INH SCH ×2 (08:07→19:34)
[2019-07-16] MEDS: ASPIRIN PO SCH (09:14)
[2019-07-16] MEDS: LASIX IV SCH ×2 (09:14→21:30)
[2019-07-16] MEDS: PRINIVIL PO SCH (09:14)
[2019-07-16] MEDS: TUSSIONEX LIQUID PO SCH ×2 (09:19→21:28)
[2019-07-16] MEDS: TYLENOL PO PRN (16:06)
--- NOTE | 2019-07-16 19:29 | PULMONOLOGY PROGRESS NOTE ---
DATE: 07/16/2019 SUBJECTIVE: The patient is awake, alert, and conversant. She is sitting on the side of the bed. She reports her shortness of breath continues to decrease. OBJECTIVE: Vital Signs: The patient has been afebrile for the last 24 hours. Vital signs are stable. Oxygen saturation is 95%. HEENT: Pupils are equal and reactive. Oropharynx appears clear. Neck: Supple. Chest: Chest reveals scattered wheezing bilaterally. Cardiac Exam: S1- S2. Abdomen: Obese and soft. Extremities: Reveal trace of peripheral edema. IMPRESSION: A 54-year-old with 1. Chronic obstructive pulmonary disease exacerbation. 2. Acute on chronic hypoxemic and hypercapnic respiratory failure. 3. Gastroesophageal reflux. 4. Nicotine addiction with ongoing tobacco use. 5. Morbid obesity. RECOMMENDATIONS: 1. Continue current treatment regimen. 2. Continue to encourage patient to stop smoking. 3. Daily education on the importance of reflux precautions. 4. Long-term, the patient would benefit from weight loss. In the short term, would recommend the patient maintain her weight while she attempts to stop smoking. cc: Jef Sanchez MD
[2019-07-16] MEDS: AMBIEN PO SCH (21:28)
[2019-07-17] MEDS: DUONEB (A & A) INH SCH ×6 (03:08→23:35)
[2019-07-17] MEDS: ZOSYN 3.375 GM in NS 50 ML IV SCH ×4 (03:13→21:18)
[2019-07-17 05:05] LABS: ALLEN TEST YES; BE 19.7 mmoll (-3.0-3.0); BLOOD TYPE ARTERIAL; HCO3-(ACT) 40.2 mmoll (20.0-26.0); METHB 0.3 % (0.0-1.5); O2(CT) 14.9 mL/dL (15.0-23.0); O2HB 92.6 % (95.0-99.0); PO2(98.6) 63 mmHg (60-100); SAMPLE BLOOD; SAO2 94.8 % (95.0-100.0); THB 11.4 g/dL (11.5-17.4); pH(98.6) 7.47 (7.35-7.45)
[2019-07-17 05:11] LABS: MODALITY CANNULA; PCO2(98.6) 64 mmHg (35-45)
[2019-07-17] MEDS: LOVENOX SUBQ SCH (06:04)
[2019-07-17] MEDS: SYNTHROID PO SCH ×2 (06:04)
[2019-07-17] MEDS: HUMULIN R SUBQ SCH ×4 (06:30→21:17)
[2019-07-17 06:46] LABS: BASO% 1.7 % (0.0-0.8); EOS# 0.06 X1000 (0.0-0.7); HEMOGLOBIN 10.6 g/dL (12.0-16.0); LYMPH# 1.92 X1000 (1.2-3.4); LYMPH% 33.5 % (20.5-51.1); MCH 30.9 PG (27-31); MCHC 30.3 g/dL (33-37); MONO# 0.84 X1000 (0.11-0.59); MONO% 14.7 % (1.7-9.3); NEUT# 2.81 X1000 (1.4-6.5); NEUT% 49.1 % (42.2-75.2); PLT 214 X1000 (130-400); RBC 3.43 XMIL (4.2-5.4); RDW 14.1 % (11.5-14.5); WBC 5.73 X1000 (4.8-10.8)
[2019-07-17 06:51] LABS: AGAP 11; BUN 13 mg/dL (8-22); CALCIUM 8.1 mg/dL (8.8-10.2); CHLORIDE 92 mmol/L (98-107); COSMO 287; CREATININE 0.7 mg/dL (0.5-0.9); ESTIMATED GFR > 60; GLUCOSE 127 mg/dL (70-104); POTASSIUM 3.1 mmol/L (3.5-5.1); SODIUM 143 mmol/L (136-145); TCO2 40 mmol/L (25-35)
[2019-07-17] MEDS ORDERED: KLOR-CON PO ONE (07:12)
[2019-07-17] MEDS: MUCOMYST 20% INH SCH ×2 (08:05→19:35)
[2019-07-17] MEDS: TUSSIONEX LIQUID PO SCH ×2 (08:33→21:17)
[2019-07-17] MEDS: LASIX IV SCH (08:33)
[2019-07-17] MEDS: ASPIRIN PO SCH (08:33)
[2019-07-17] MEDS: PRINIVIL PO SCH (08:33)
[2019-07-17] MEDS: LASIX PO SCH (08:39)
--- NOTE | 2019-07-17 09:03 | Diag Imaging Result Doc PS360 ---
EXAM: CHEST-2 VIEWS 07/17/2019 HISTORY: pna, pulmonary edema TECHNIQUE: PA and lateral chest COMMENT: There is cardiomegaly. There is increased platelike opacity in the right middle lobe and left lower lobe compared to 07/11/2019. The lungs are actually better expanded. There is some increased interstitial markings. IMPRESSION: Cardiomegaly with mild interstitial pulmonary edema. Bibasilar atelectasis. Electronically signed by Lebron Aquino 07/17/2019 9:00 AM
--- NOTE | 2019-07-17 09:07 | PROGRESS NOTE ---
DATE: 07/17/2019 SUBJECTIVE: The patient reports home breathing better. Upon my examination, she is coughing a little bit requiring definitely less oxygen, no acute issues noted as per nursing staff overnight. OBJECTIVE: Vital Signs: Temperature 97.5 degrees, heart rate 76, respiratory rate 18, blood pressure 159/83, O2 saturation 96% on 2 L nasal cannula. General examination: This is a 54-year- old female lying in bed, in no acute distress. Cardiovascular Exam: S1, S2 heard. No murmurs, gallops, or rubs. Regular rate and rhythm. Respiratory Exam: Exam bibasilar rhonchi and wheezing noted in both pulmonary joe better in comparing with yesterday. Patient is not using any accessory muscles or having work of breathing. Abdomen: Soft, nontender to palpation. Bowel sounds present. No organomegaly. Extremities: No clubbing, cyanosis, or edema. Peripheral pulses present in both legs. Neurological Exam: Patient is alert and oriented x3. Moves 4 extremities. LABORATORY DATA: White cell count 5.73 hemoglobin 10.6, hematocrit 35.0 platelets 214,000 with sodium 147, potassium 4.5, pH 7.47, pCO2 64, pO2 63, that was taken on nasal cannula at 2 L per minute and BMP remarkable for potassium 3.1, glucose 127. ProBNP 2935. ASSESSMENT AND PLAN: 1. Acute respiratory failure secondary to chronic obstructive pulmonary disease exacerbation and mild bilateral pneumonia. The patient continues to be on vancomycin and Zosyn. Today is day number 3 for both medications. Clinically, patient is improving requiring less oxygen supplementation. At this point, she is requiring only 2 L of oxygen by nasal cannula. The patient is feeling better. We will transfer her out all the PVC unit today. 2. Congestive heart failure with normal ejection fraction. I think this patient is getting better even though the proBNP is still high but definitely better in comparing with admission, so at this point, I am going to switch Lasix IV to Lasix by mouth and will continue to monitor. 3. Diabetes mellitus type 2. We will continue with sliding scale insulin and Accu-Chek before meals and also at bedtime. 4. Hypertension. Blood pressure is under control. We will continue with same medication. 5. Disposition. At this point, patient is getting better. I will transfer her to a regular room. I am going to call Physical Therapy. The patient may be discharged in the next 24 to 48 hours. cc: Darren Mejia MD [facility]
[2019-07-17] MEDS: VANCOMYCIN 1,600 MG in NS 250 ML IV SCH ×2 (11:21→22:48)
[2019-07-17] MEDS: AMBIEN PO SCH (21:17)
--- NOTE | 2019-07-17 21:40 | PULMONOLOGY PROGRESS NOTE ---
DATE: 07/17/2019 SUBJECTIVE: The patient is awake, alert, and conversant. Clinically, she feels better. OBJECTIVE: Vital Signs: The patient has been afebrile for the last 24 hours. Blood pressure 142/78, heart rate 75, respiratory rate 18, oxygen saturation 100% on 3 L per nasal cannula. HEENT: Pupils are equal and reactive. Oropharynx appears clear. Neck: Is supple. Chest: Reveals scattered wheezing and rhonchi bilaterally. Cardiac exam: S1-S2. Abdomen: Is obese and soft. Extremities: Reveal trace edema. LABORATORIES: Chest x-ray reveals areas of atelectasis in the right mid lung zone with possible mild atelectasis left mid lung zone. Better expansion. Arterial blood gas on 2 L per nasal cannula reveals pH 7.47, pCO2 of 64, pO2 of 63. IMPRESSION: A 54-year-old with 1. Chronic obstructive pulmonary disease exacerbation. 2. Acute on chronic hypoxemic respiratory failure. 3. Chronic hypercapnic respiratory failure. 4. Gastroesophageal reflux disease. 5. Nicotine addiction with ongoing tobacco use. 6. Morbid obesity. RECOMMENDATIONS: 1. Continue current treatment regimen. She continues to improve and hopefully can be discharged in the next 24 to 48 hours. 2. Continue to encourage reflux precautions, smoking cessation, and weight loss. cc: Jef Sanchez MD
[2019-07-18] MEDS: DUONEB (A & A) INH SCH ×6 (03:35→23:23)
[2019-07-18] MEDS: ZOSYN 3.375 GM in NS 50 ML IV SCH ×4 (04:26→22:55)
[2019-07-18 05:58] LABS: BASO# 0.13 X1000 (0.0-0.2); BASO% 1.9 % (0.0-0.8); EOS# 0.11 X1000 (0.0-0.7); EOS% 1.6 % (0.0-10.0); HEMATOCRIT 34.2 % (37.0-47.0); HEMOGLOBIN 10.5 g/dL (12.0-16.0); LYMPH# 2.19 X1000 (1.2-3.4); LYMPH% 32.2 % (20.5-51.1); MCH 31.1 PG (27-31); MCHC 30.7 g/dL (33-37); MCV 101.2 FL (81-99); MONO# 0.91 X1000 (0.11-0.59); MONO% 13.4 % (1.7-9.3); MPV 9.8 FL (7.4-10.4); NEUT# 3.47 X1000 (1.4-6.5); NEUT% 50.9 % (42.2-75.2); PLT 217 X1000 (130-400); RBC 3.38 XMIL (4.2-5.4); RDW 13.9 % (11.5-14.5); WBC 6.81 X1000 (4.8-10.8)
[2019-07-18] MEDS: HUMULIN R SUBQ SCH ×4 (06:22→21:52)
[2019-07-18] MEDS: LOVENOX SUBQ SCH (06:26)
[2019-07-18] MEDS: SYNTHROID PO SCH ×2 (06:26)
[2019-07-18 06:29] LABS: AGAP 11; ALBUMIN 3.3 g/dL (3.5-5.0); BUN 14 mg/dL (8-22); CALCIUM 8.4 mg/dL (8.8-10.2); CHLORIDE 97 mmol/L (98-107); COSMO 290; CREATININE 0.7 mg/dL (0.5-0.9); ESTIMATED GFR > 60; GLUCOSE 145 mg/dL (70-104); PHOSPHORUS 3.6 mg/dL (2.7-4.5); POTASSIUM 3.6 mmol/L (3.5-5.1); SODIUM 144 mmol/L (136-145); TCO2 36 mmol/L (25-35)
[2019-07-18 06:41] LABS: BASO 1 % (0-1); EOS 1 % (1-10); LYMPHS 33 % (21-51); MONO 11 % (1-9); SEGS 54 % (42-75)
[2019-07-18] MEDS: MUCOMYST 20% INH SCH ×2 (07:53→20:04)
[2019-07-18] MEDS: LASIX PO SCH (08:33)
[2019-07-18] MEDS: ASPIRIN PO SCH (08:33)
[2019-07-18] MEDS: PRINIVIL PO SCH (08:34)
[2019-07-18] MEDS: TUSSIONEX LIQUID PO SCH ×2 (08:40→21:53)
--- NOTE | 2019-07-18 09:03 | PROGRESS NOTE ---
DATE: 07/18/2019 SUBJECTIVE: Patient reports breathing better. After many days, she is breathing comfortable. No acute issues noted as per nursing staff. OBJECTIVE: Vital Signs: Temperature 97.6 degrees, heart rate 76, respiratory 17, blood pressure 157/91, O2 saturation 97% on 2 L nasal cannula. General Examination: This is a 54-year-old female, lying in bed in no acute distress. Cardiovascular exam: S1 and S2 heard. No murmurs, gallops, or rubs. Regular rate and rhythm. Respiratory exam: Bibasilar rhonchi, some wheezing noted still in both pulmonary joe, better in comparing with previous days. Patient is not using any accessory muscles or having work of breathing. Abdomen: Soft, nontender to palpation. Bowel sounds present. No organomegaly. Extremities: No clubbing, cyanosis or edema. Peripheral pulses present in both legs. Neurological exam: Patient is alert and oriented x3. Moves 4 extremities. LABORATORY DATA: White cell count 6.81, hemoglobin 10.5, hematocrit 34.2, platelets 217. Normal BMP today. ProBNP from yesterday 2935. ASSESSMENT AND PLAN: 1. Acute respiratory failure secondary to chronic obstructive pulmonary disease exacerbation and mild bilateral pneumonia. Clinically this patient is doing okay, improving. The patient is on vancomycin and Zosyn day #4 for both medications. We will continue with the same management. Now requiring 2 liters of oxygen by nasal cannula. As we speak, patient has been working with physical therapy to set up home oxygen. The patient is stable, so will transfer her out of the progressive care unit today. 2. Congestive heart failure with normal ejection fraction. We have changed Lasix intravenous to oral, in this case 40 mg oral daily. We will continue with the same management. 3. Diabetes mellitus type 2. We will continue with sliding scale insulin, Accu-Chek before meals and also at bedtime. 4. Hypertension. Blood pressure is under control. We will continue with the same medication. 5. Disposition: At this point, the patient continues to improve. We will transfer to a regular room. Physical therapy working with this patient. I think this patient may be discharged in the next 24 to 48 hours. cc: Darren Mejia MD
[2019-07-18] MEDS: VANCOMYCIN 1,600 MG in NS 250 ML IV SCH (12:01)
--- NOTE | 2019-07-18 21:22 | PULMONOLOGY PROGRESS NOTE ---
DATE: 07/18/2019 SUBJECTIVE: The patient is awake, alert, and conversant. She reports she has had a good day. She denies dyspnea. OBJECTIVE: Vital Signs: The patient has been afebrile for the last 24 hours. Blood pressure 148/64, heart rate 76, respiratory rate 20, oxygen saturation 96% on 2 L per nasal cannula. HEENT: Pupils are equal and reactive. Oropharynx appears clear. Neck: Supple. Chest: Reveals prolonged expiratory phase with scattered rhonchi. Wheezing has significantly diminished. Cardiac: S1-S2. Abdomen: Obese and soft. Extremities: Without edema. LABORATORIES: White blood count 6.81, hemoglobin 10.5, platelet count 217,000. Sodium 144, potassium 3.6, chloride 97, bicarbonate 36, BUN 14, creatinine 0.7. IMPRESSION: A 54-year-old with: 1. Chronic obstructive pulmonary disease exacerbation. 2. Acute on chronic hypoxemic respiratory failure. 3. Chronic hypercapnic respiratory failure. 4. Nicotine addiction with ongoing tobacco use. 5. Gastroesophageal reflux. 6. Morbid obesity. DISCUSSION: A 54-year-old with problems outlined above. She continues to improve. PLAN: 1. Continue current treatment regimen. 2. Consider transitioning patient to oral steroids and antibiotics. 3. Encourage smoking cessation. 4. Encourage reflux precautions. 5. Encourage weight loss. 6. Anticipate discharge home soon. cc: Jef Sanchez MD
[2019-07-18] MEDS: AMBIEN PO SCH (21:52)
[2019-07-19] MEDS: DUONEB (A & A) INH SCH ×6 (03:43→23:31)
[2019-07-19] MEDS: ZOSYN 3.375 GM in NS 50 ML IV SCH ×5 (04:16→23:12)
[2019-07-19] MEDS: TYLENOL PO PRN ×2 (04:38→21:20)
[2019-07-19] MEDS: SYNTHROID PO SCH ×4 (05:04→06:30)
[2019-07-19] MEDS: LOVENOX SUBQ SCH (05:04)
[2019-07-19] MEDS: HUMULIN R SUBQ SCH ×4 (06:29→21:19)
[2019-07-19] MEDS: MUCOMYST 20% INH SCH ×2 (07:41→19:46)
[2019-07-19] MEDS: TUSSIONEX LIQUID PO SCH ×3 (07:50→21:34)
[2019-07-19] MEDS: ASPIRIN PO SCH ×2 (07:50→08:11)
[2019-07-19] MEDS: LASIX PO SCH ×2 (07:50→08:11)
[2019-07-19] MEDS: PRINIVIL PO SCH ×2 (07:50→08:12)
--- NOTE | 2019-07-19 10:51 | PROGRESS NOTE ---
DATE: 07/19/2019 SUBJECTIVE: Patient reports breathing better. A little bit of shortness of breath when she walks, but definitely much better in comparing with the last few days. She continues to require 2 L of oxygen by nasal cannula. OBJECTIVE: Vital Signs: Temperature 97.7 degrees, heart rate 75, respiratory rate 19, blood pressure 162/86, and O2 saturation 97% on 2 L nasal cannula. General: This is a chronically ill- appearing 54-year-old female lying in bed in no acute distress. Cardiovascular: S1 and S2 heard. No murmurs, gallops, or rubs. Regular rate and rhythm. Respiratory: Bibasilar rhonchi. There is some wheezing still noted in both pulmonary joe mostly in both bases. Patient is not using any accessory muscles or having work of breathing. Abdomen: Soft, nontender to palpation. Bowel sounds present. No organomegaly. Extremities: No clubbing, cyanosis, or edema. Peripheral pulses present in both legs. Neurological: Patient alert and oriented x3. Moves all 4 extremities. LABORATORY DATA: There are no labs from today. ASSESSMENT AND PLAN: 1. Acute respiratory failure secondary to chronic obstructive pulmonary disease exacerbation and mild bilateral pneumonia. Clinically, this patient is doing fine. The patient is on vancomycin and Zosyn day #5 for both medication. She reports breathing okay. Physical examination disclosed less wheezing. Now, she is requiring 2 L of oxygen by nasal cannula. At this point, patient is getting much better. We are anticipating that this patient will need home oxygen so we have talked with social service agency director to start setting up this oxygen for her. I think this patient will be here for 24 more hours, and see how she does. If she is feeling okay, I think we can let her go tomorrow. 2. Congestive heart failure with normal ejection fraction. The patient is receiving Lasix 40 mg p.o. daily. The patient has been seen by portfolio architect in her last hospitalization. At this point, we will continue to monitor. 3. Diabetes mellitus type 2. We will continue with sliding scale insulin. Accu-Chek before meals, and also at bedtime. 4. Hypertension. Blood pressure is under control. We will continue with the same management. 5. Disposition. At this point, patient continues to improve. I think this patient should be able to go home during the next 24 hours. We already talked with social service agency director to set up home oxygen so she can be discharged over the weekend. cc: Darren Mejia MD
[2019-07-19] MEDS: VANCOMYCIN 1,400 MG in NS 250 ML IV SCH ×2 (11:21→22:18)
[2019-07-19] MEDS: AMBIEN PO SCH (21:34)
[2019-07-20] MEDS: DUONEB (A & A) INH SCH ×6 (03:26→23:18)
[2019-07-20] MEDS: ZOSYN 3.375 GM in NS 50 ML IV SCH ×4 (03:45→20:45)
[2019-07-20] MEDS: SYNTHROID PO SCH ×2 (06:11)
[2019-07-20] MEDS: LOVENOX SUBQ SCH (06:11)
[2019-07-20] MEDS: HUMULIN R SUBQ SCH ×4 (06:22→20:40)
[2019-07-20] MEDS: MUCOMYST 20% INH SCH ×2 (07:48→19:27)
[2019-07-20] MEDS: ASPIRIN PO SCH (10:47)
[2019-07-20] MEDS: LASIX PO SCH (10:48)
[2019-07-20] MEDS: TUSSIONEX LIQUID PO SCH ×2 (10:48→20:47)
[2019-07-20] MEDS: PRINIVIL PO SCH (10:48)
[2019-07-20] MEDS: VANCOMYCIN 1,400 MG in NS 250 ML IV SCH ×2 (11:05→12:00)
--- NOTE | 2019-07-20 13:30 | PROGRESS NOTE ---
DATE: 07/20/2019 INTERVAL HISTORY: The patient still has some dyspnea on exertion, but fairly comfortable at rest. Oxygen overnight appeared to be markedly improved, but when we attempted to check her on room air, she de-satted to 84 as soon as she got out of the bed. No new complaints. No acute events overnight. REVIEW OF SYSTEMS: Twelve point review of systems negative, except as per interval history. VITALS: T-max 98.4 degrees pulse 83, respirations 16, blood pressure 163/82, O2 saturation 96% on 3 L by nasal cannula. PHYSICAL EXAMINATION: General: No acute distress. Obese. Vitals: As above. HEENT: Normocephalic, atraumatic. Moist mucous membranes. Neck: No cervical adenopathy. Cardiovascular: Regular rate and rhythm. No murmurs noted. Pulmonary: Mild to moderately decreased breath sounds throughout. No wheezing currently. No rhonchi, rales noted. Abdomen: Soft, nontender, nondistended. Bowel sounds positive. Extremities: Peripheral pulses intact. Trace edema bilaterally. No clubbing or cyanosis. Neurologic: Cranial nerves grossly intact. No focal deficits. Psychiatric: Normal mood and affect. Awake, alert, oriented x3. ASSESSMENT AND PLAN: 1. Acute on likely chronic hypoxic respiratory failure, chronic obstructive pulmonary disease exacerbation, pneumonia. The patient is much improved. Afebrile. No leukocytosis on last check. Oxygenation appears improved, but still with significant de-saturations with minimal exertion. Will likely need home oxygen indefinitely. Patient without insurance may be somewhat problematic. Hopefully, we can get that set up, and she will be ready for discharge in the next 24 to 48 hours. Continue steroids and nebulizers for now. 2. Diabetes mellitus. Acceptable control currently. Continue to monitor. 3. Hypertension, pretty consistently mild to moderately elevated blood pressures. We will increase home lisinopril and monitor.
[2019-07-20] MEDS: AMBIEN PO SCH (20:47)
[2019-07-20] MEDS: TYLENOL PO PRN (20:47)
--- NOTE | 2019-07-20 21:44 | PULMONOLOGY PROGRESS NOTE ---
DATE: 07/20/2019 SUBJECTIVE: The patient is awake and alert. She reports she feels better. She is anxious to go home. OBJECTIVE: The patient has been afebrile for the last 24 hours. Blood pressure 153/106, heart rate 83, respiratory rate 20, oxygen saturation 96% on 2 L per nasal cannula. HEENT: Pupils are equal and reactive. Oropharynx appears clear. Neck is supple. Chest reveals mild wheezing bilaterally. Cardiac exam: S1, S2. Abdomen is obese and soft. Extremities reveal trace edema. IMPRESSION: 1. Chronic obstructive pulmonary disease exacerbation. 2. [id number] hypoxemic respiratory failure. 3. Chronic hypercapnic respiratory failure. 4. Nicotine addiction with ongoing tobacco use. 5. Gastroesophageal reflux. 6. Morbid obesity. PLAN: 1. Continue current treatment regimen. 2. Encourage smoking cessation. 3. Encourage reflux precautions. 4. Encourage weight loss. 5. Anticipate discharge soon. cc: Jef Sanchez MD
[2019-07-21] MEDS: ZOSYN 3.375 GM in NS 50 ML IV SCH ×6 (00:04→22:30)
[2019-07-21] MEDS: VANCOMYCIN 1,400 MG in NS 250 ML IV SCH ×3 (00:53→23:24)
[2019-07-21] MEDS: DUONEB (A & A) INH SCH ×6 (03:03→22:33)
[2019-07-21] MEDS: LOVENOX SUBQ SCH (05:25)
[2019-07-21] MEDS: SYNTHROID PO SCH ×4 (05:25→06:02)
[2019-07-21] MEDS: HUMULIN R SUBQ SCH ×4 (06:30→22:14)
[2019-07-21] MEDS: MUCOMYST 20% INH SCH ×2 (08:09→19:26)
[2019-07-21] MEDS: LASIX PO SCH (09:25)
[2019-07-21] MEDS: TUSSIONEX LIQUID PO SCH ×2 (09:25→22:15)
[2019-07-21] MEDS: ASPIRIN PO SCH (09:25)
[2019-07-21] MEDS: PRINIVIL PO SCH (09:25)
--- NOTE | 2019-07-21 14:07 | PROGRESS NOTE ---
DATE: 07/21/2019 INTERVAL HISTORY: The patient is still with some dyspnea on exertion but otherwise doing well. No acute events overnight. No new complaints. REVIEW OF SYSTEMS: Twelve point review of systems negative except as per interval history. LABS: Glucose 165-244. VITALS: T-max 98.6 degrees, pulse 80, respirations 16, blood pressure 150/79, O2 saturation is 96% on 3 L by nasal cannula. PHYSICAL EXAMINATION: General: No acute distress. Vitals: As above. HEENT: Normocephalic, atraumatic. Moist mucous membranes. No cervical adenopathy. No JVD. Cardiovascular: Regular rate and rhythm. No murmurs noted. Pulmonary: Mildly to moderately decreased breath sounds throughout. No wheezing currently. Abdomen: Soft, nontender, nondistended. Bowel sounds positive. Extremities: Peripheral pulses intact. No clubbing or cyanosis. Trace edema of bilateral legs. Neurologic: Cranial nerves grossly intact. No focal deficits identified. Psychiatric: Normal mood and affect. Awake, alert, and oriented x3. ASSESSMENT AND PLAN: 1. Acute on likely chronic hypoxic respiratory failure, chronic obstructive pulmonary disease exacerbation, pneumonia. Patient is much improved. Remains afebrile. No leukocytosis on last check. Oxygenation roughly stable from yesterday. Her numbers look quite good on 2 to 3 L of oxygen but when we tried to stand her up yesterday, she desaturated down to 84. Trying to get home oxygen set up but with her lack of insurance, it has been problematic. We will continue to try to wean down oxygen. If we can get her home oxygen set up or if we can wean her off of oxygen entirely, then she will hopefully be able to go home in the next 24 to 48 hours. Continue steroids and nebulizers for now. 2. Diabetes mellitus. Control not perfect but acceptable for now. Monitor. 3. Hypertension. Lisinopril increased. We will see how that does and go from there.
[2019-07-21] MEDS: AMBIEN PO SCH (22:15)
[2019-07-21] MEDS: TYLENOL PO PRN (22:26)
[2019-07-21 22:57] LABS: CREATININE 0.9 mg/dL (0.5-0.9); RANDOM VANCOMYCIN 19.1 ug/mL (5.0-80)
[2019-07-22] MEDS: DUONEB (A & A) INH SCH ×3 (03:22→11:21)
[2019-07-22] MEDS: ZOSYN 3.375 GM in NS 50 ML IV SCH ×2 (03:33→09:55)
[2019-07-22] MEDS: LOVENOX SUBQ SCH (05:42)
[2019-07-22] MEDS: SYNTHROID PO SCH ×4 (05:42→06:17)
[2019-07-22] MEDS: HUMULIN R SUBQ SCH ×2 (06:49→11:47)
[2019-07-22] MEDS: MUCOMYST 20% INH SCH (07:54)
[2019-07-22] MEDS ORDERED: PRINIVIL PO SCH (09:00)
[2019-07-22] MEDS: ASPIRIN PO SCH (09:56)
[2019-07-22] MEDS: LASIX PO SCH (09:59)
[2019-07-22] MEDS: TUSSIONEX LIQUID PO SCH (09:59)
[2019-07-22 11:31] VITALS: BP 153/91
[2019-07-22] MEDS: VANCOMYCIN 1,400 MG in NS 250 ML IV SCH (11:47)
[2019-07-22] MEDS ORDERED: DOXYCYCLINE PO SCH (12:45)
== END 2019-07-22 13:57 | disposition home or self-care (01) | DRG 291 ==
LOC: ED 20:18 → SUATTDRO 07-12 01:04 → 3N 07-12 01:04 → 2N 07-14 12:56 → 4N 07-18 10:16
PROVIDERS: ATTEND Internal Medicine